=== PATIENT | female | born 1970 | race Caucasian/White ===

== ENCOUNTER → 2017-08-21 12:53 | Outpatient (CLI) | payer OTHER, SELFPAY ==
--- NOTE | 2017-08-21 | DI.RAD.S_ITS ---
PROCEDURE: XR HIP W PEL IF DONE LT 2V INDICATIONS: 47 year-old female with left hip pain, and remote skiing injury. TECHNIQUE: AP pelvis with lateral view(s) of the left hip(s). COMPARISON: None. FINDINGS: Bones: No fractures or dislocations. Pelvic ring appears intact. No joint degeneration. No congenital hip dysplasia. No suspicious bony lesions. Soft tissues: The visualized bowel gas pattern is normal. No suspicious soft tissue calcifications. IMPRESSION: No imaging explanation for left hip pain. Dictated by: Miguel A Hammer M.D. on 08/21/2017 at 14:03 Approved by: Miguel A Hammer M.D. on 08/21/2017 at 14:04
== END ==
PROVIDERS: Family Provider Family Medicine; PCP Family Medicine; Visit Provider Family Medicine
DX: M25.552 Pain in left hip (principal)
CPT/HCPCS: 73502

== ENCOUNTER → 2017-10-15 12:39 | Outpatient (CLI) | payer OTHER, SELFPAY ==
[2017-10-15 13:00] LABS: Add Manual Diff / Slide Review NO; Basophils Percent Auto 0.7 % (0-2); Eosinophils Percent Auto 2.6 % (2-4); Hematocrit 38.7 % (36-46); Hemoglobin 13.1 g/dL (12.0-16.0); Mean Corpuscular HGB Conc 33.9 % (30-36); Mean Corpuscular Hemoglobin 32.5 PG (26-34); Mean Corpuscular Volume 95.8 fL (80-100); Monocytes Percent Auto 7.4 % (3-14); Neutrophils Absolute Auto 3100 /uL (3000-5900); Neutrophils Percent Auto 48.3 % (50-75); Platelet Count 242 X10^3/uL (150-400); Red Blood Cell Count 4.04 X10^6/uL (4.0-5.2); Red Cell Distribution Width 12.5 % (11.6-14.8); White Blood Cell Count 6.3 X10^3/uL (4.5-11.0)
[2017-10-15 13:11] LABS: Alanine Aminotransferase 21 IU/L (9-52); Albumin Globulin Ratio 1.4 (1.0-2.8); Alkaline Phosphatase 64 U/L (38-126); Aspartate Aminotransferase 25 IU/L (14-36); BUN Creatinine Ratio 15.7 (6-22); Bilirubin Total 0.6 mg/dL (0.2-1.3); Blood Urea Nitrogen 11 mg/dL (7-17); Calcium 9.5 mg/dL (8.4-10.2); Carbon Dioxide 26 mmol/L (22-32); Chloride 105 mmol/L (98-107); Estimated Glomerular Filt Rate > 60.0 mL/min (>60); Globulin 2.8 g/dL (1.7-4.1); Glucose 111 mg/dL (70-100); HEMOLYSIS < 15 (0-50); Potassium 3.8 mmol/L (3.4-5.1); Sodium 140 mmol/L (137-145); Total Protein 6.8 g/dL (6.3-8.2)
[2017-10-17 15:48] LABS: Cancer Antigen 27.29 24 U/mL (< 38)
== END ==
PROVIDERS: Family Provider Family Medicine; PCP Family Medicine; Visit Provider Nurse Practitioner Gerontology
DX: C50.912 Malignant neoplasm of unspecified site of left female breast (principal)
CPT/HCPCS: 36415; 80053; 85025; 86300

== ENCOUNTER 2017-11-04 09:45 | Outpatient (RCR) | payer OTHER, SELFPAY ==
--- NOTE | 2017-09-23 10:30 | PT.OIE ---
Current Diagnoses Pain in left hip (09/23/17) Past Surgical History History of third molar tooth extraction Status post appendectomy Status post breast biopsy Status post laparoscopic supracervical hysterectomy (05/17/14) Provider Visit Care Team Role Provider Type Hayley Gillis MD Attending Provider Physician Family Provider Primary Care Provider Specialty: Family Practice Address: [address] [place] [address], [id number] Email: Physical Therapy Initial Evaluation PT-OP-A Visit Information Start: 09/23/17 09:43 Freq: Status: Active Protocol: Document 09/23/17 10:30 MDD (Rec: 09/23/17 12:02 MDD [email or web address]) Out-Patient Physical Therapy Visit Information Visit Information Visit Type Initial Evaluation Visit Start Time 09:48 Visit Stop Time 10:30 Total Visit Minutes 42 Visit Number 1 Number of BEAD WRAPPER Visits 0 Evaluation Information Evaluation Date 09/23/17 PT-OP-B Current Condition Start: 09/23/17 09:43 Freq: Status: Active Protocol: Document 09/23/17 10:30 MDD (Rec: 09/23/17 12:02 MDD [email or web address]) Current Condition History of Current Condition Onset Date fall Current Complaints L hip pain, posterior and deep , occasionally radiates anteriorly History of Current Condition Pain began incidiously, pt reports symptoms B, L > R. Did have medial meniscal tear 3 years ago, nonoperative management with PT. Described as deep stinging, intermittently sharp with stair climbing/WB. Aggravating factors include walking long distances and getting up from sitting prolonged periods. Intermittent spasms noted when laying in bed/sitting. Unable to lay/sleep comfortably on either side. No clicking/popping noted. Prior Treatments and Tests Recent x-ray does not demonstrate degenerative disease per pt report. Pt currently seeing chiropractor - just started treatment, no real change thus far. Foam roll is relieving/performs intermittently. Very infrequently takes ibuprofen if really aggravated. Future Testing and Treatments Planned NA Treatment Goals Patient/Caregiver Goals Pt to tolerate climbing stairs without pain. Pt to tolerate sleeping through the night without left hip pain. 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 Baseline Function- Recreation/Hobbies Gardening, walking. When traveling pt prefers to walk. Trip to [place] last summer walked 10 miles daily x 3 weeks. Would like to take a trip next summer as well. Current Functional Impairments (Reported) Functional Limitations- Mobility/Gait Sitting greater than 30 minutes Ascending/descending stairs Gait greater than 1 mile Personal Factors Other Personal Factors That May Effect Pt with recent diagnosis of Therapy/Recovery breast cancer - currently taking Tamoxifen and in chemically induced menopause. Reports very few negative side effects at this time. PT-OP-C Subjective Start: 09/23/17 09:43 Freq: Status: Active Protocol: Document 09/23/17 10:30 MDD (Rec: 09/23/17 12:02 MDD [email or web address]) OP-PT Subjective Patient Comments Patient Reported Progress Same Patient Questionnaires Lower Extremity Functional Scale LEFS Impairment 20 to 39% Impaired (Score 48- 62) OP-PT Pain Assessment Pain Assessment Grid Paper Pain Assessment Grid Completed Yes Location Lower Back Pain Location Details lumbar spine Intensity 2 Scale Used Numeric (1 - 10) Description Aching Frequency Intermittent L hip Pain Location Details posterior left hip Intensity 4 Scale Used Numeric (1 - 10) Description Aching Cramping Sharp Spasm Frequency Frequent Pain Duration 1 year Radiating Location anterior hip Pain Aggravating Factors Position Changing Position Standing Sitting Walking Stair Climbing Pain Alleviating Factors Massage Other Pain Alleviating Factors foam roll to tender areas PT-OP-F Manual Assessment Start: 09/23/17 09:43 Freq: Status: Active Protocol: Document 09/23/17 10:30 MDD (Rec: 09/23/17 12:02 MDD [email or web address]) Manual Assessments Other Manual Assessments Other Manual Assessments L iliac crest/PSIS/ASIS appear elevated in standing, increased lumbar lordosis noted. PT-OP-G Mobility & Gait Start: 09/23/17 09:43 Freq: Status: Active Protocol: Document 09/23/17 10:30 MDD (Rec: 09/23/17 12:02 MDD [email or web address]) OP Mobility Evaluation Bed Mobility Rolling Independent Supine to and from Sit Independent Transfers Sit to Stand Independent Bed to Chair Transfers Independent Functional Movements Squats Independent, single leg squats aggravate L hip pain on L, demonstrates functional hip weakness with patella drifting medial OP Gait Assessment Gait Gait Assistance Required: Independent Distance (Feet) (feet) 20 Able to Maintain Weight Bearing Status Yes During Gait Gait Deviations General Gait Pattern Antalgic PT-OP-J Posture/Palpation/Skin Start: 09/23/17 09:43 Freq: Status: Active Protocol: Document 09/23/17 10:30 MDD (Rec: 09/23/17 12:02 MDD [email or web address]) Posture Evaluation Comments Posture Comments L iliac crest/PSIS/ ASIS elevated in standing. Increase lumbar lordosis. Palpation Assessment Location One Palpation Location B piriformis Palpation Findings Soft Tissue Tightness Palpation Details L piriformis ttp with palpable tightness noted PT-OP-K Range of Motion Start: 09/23/17 09:43 Freq: Status: Active Protocol: Document 09/23/17 10:30 MDD (Rec: 09/23/17 12:02 MDD [email or web address]) Lumbar Spine Range of Motion Lumbar Spine Active Testing Position Standing Comments Lumbar ROM wfl with no increase in hip pain. Mild disfomfort in low back noted with extension. Hip Goniometric Range of Motion Hip ROM Limitations Hip ROM Limitations Pain Comments L hip flexion > 100 degrees mildly painful. Extension and abduction wnl. PT-OP-L Special Tests Start: 09/23/17 09:43 Freq: Status: Active Protocol: Document 09/23/17 10:30 MDD (Rec: 09/23/17 12:02 [facility] [email or web address]) Special Tests Lumbar Spine Special Tests Straight Leg Raise Test Results - Comments HS tightness L >R Stork Test Test Results + instability and pain L LE Hip Special Tests Courtney's Test Test Results quad shortness R>L straight leg Test Results - B Comments hamstring shortness L > R Scour Test Test Results + increased pain L hip OLAYINKA Test Results + increased pain L groin and posterior hip PT-OP-M Strength Start: 09/23/17 09:43 Freq: Status: Active Protocol: Document 09/23/17 10:30 MDD (Rec: 09/23/17 12:02 MDD [email or web address]) Hip Strength Hip Manual Muscle Testing Right Flexion (L2) 4+ Good+ Extension (S1) 4+ Good+ Abduction 5 Normal External Rotation 5 Normal Internal Rotation 5 Normal Left Flexion (L2) 4- Good- Extension (S1) 4+ Good+ Abduction 3+ Fair+ External Rotation 4- Good- Internal Rotation 4 Good Comments Resisted flexion and IR painful Knee Strength Knee Manual Muscle Testing Right Flexion (S2) 5 Normal Extension (L3) 5 Normal Left Flexion (S2) 5 Normal Extension (L3) 5 Normal PT-OP-Q Treatments Start: 09/23/17 09:43 Freq: Status: Active Protocol: Document 09/23/17 10:30 MDD (Rec: 09/23/17 12:02 MDD [email or web address]) Therapeutic Exercises Supine Exercises Straight leg raise Side bilateral Reps/Minutes 8 Comments stabilizing with TrA and posterior pelvic tilt Posterior pelvic tilts Side bilateral Reps/Minutes 15 with 5 s holds Comments focus on pelvic isolation/ avoiding using RA Sidelying Exercises Clamshells Side bilateral Reps/Minutes 15-20 Comments Focus on proper form ( increased hip/knee flexion) PT-OP-T Assessment and Plan Start: 09/23/17 09:43 Freq: Status: Active Protocol: Document 09/23/17 10:30 MDD (Rec: 09/23/17 12:02 MDD [email or web address]) Physical Therapy Assessment Rehab Potential Rehabilitation Potential Excellent Evaluation Complexity Number of Personal Factors/Comorbidities 1-2 Number of Body Systems Impaired 1-2 Clinical Presentation at Evaluation Stable Impairments Impairments Activity Tolerance Functional Activities Gait Pain Posture ROM Soft Tissue Mobility Strength Goals Four Impairment Activity tolerance Half-Way Goal (LTG) Pt to tolerate ambulating up to 6 miles with no greater than 2/10 L hip pain LTG Duration 8-12 Three Impairment strength Short Term Goal (STG) Pt to demonstrate single leg squat with proper form and no pain on left. STG Duration 5-6 weeks 2 Impairment functional activities Short Term Goal (STG) Pt to ascend 3 flights of stairs with pain no greater than 2/10. STG Duration 2-3 weeks 1 Impairment Pain Short Term Goal (STG) Pt to report decreased pain to no greater than 2/10 after a full day of work. STG Duration 2 weeks Assessment Summary Assessment Pt demonstrates impaired posture, impaired L hip/core strength and stability and pain. Physical Therapy Plan Frequency and Duration Frequency of Treatment 1x/Week Duration of Treatment 8-12 weeks Plan of Care Start Date 09/23/17 Plan of Care End Date 12/24/17 Next Visit Focus/Plan Next Note Type Treatment Note Next Visit Plan Evaluate stair climbing, TrA strength. Review HEP and perform gait analysis.
--- NOTE | 2017-09-23 12:05 | PT.OPPOC ---
Current Diagnoses Pain in left hip (09/23/17) Provider Visit Care Team Role Provider Type Hayley Gillis MD Attending Provider Physician Family Provider Primary Care Provider Specialty: Family Practice Address: [address] [place] [address], [id number] Email: Plan Of Care PT-OP-T Assessment and Plan Start: 09/23/17 09:43 Freq: Status: Active Protocol: Document 09/23/17 10:30 MDD (Rec: 09/23/17 12:02 MDD [email or web address]) Physical Therapy Assessment Rehab Potential Rehabilitation Potential Excellent Evaluation Complexity Number of Personal Factors/Comorbidities 1-2 Number of Body Systems Impaired 1-2 Clinical Presentation at Evaluation Stable Impairments Impairments Activity Tolerance Functional Activities Gait Pain Posture ROM Soft Tissue Mobility Strength Goals Four Impairment Activity tolerance Technical Project Coordinator Goal (LTG) Pt to tolerate ambulating up to 6 miles with no greater than 2/10 L hip pain LTG Duration 8-12 Three Impairment strength Short Term Goal (STG) Pt to demonstrate single leg squat with proper form and no pain on left. STG Duration 5-6 weeks 2 Impairment functional activities Short Term Goal (STG) Pt to ascend 3 flights of stairs with pain no greater than 2/10. STG Duration 2-3 weeks 1 Impairment Pain Short Term Goal (STG) Pt to report decreased pain to no greater than 2/10 after a full day of work. STG Duration 2 weeks Assessment Summary Assessment Pt demonstrates impaired posture, impaired L hip/core strength and stability and pain. Physical Therapy Plan Frequency and Duration Frequency of Treatment 1x/Week Duration of Treatment 8-12 weeks Plan of Care Start Date 09/23/17 Plan of Care End Date 12/24/17 Next Visit Focus/Plan Next Note Type Treatment Note Next Visit Plan Evaluate stair climbing, TrA strength. Review HEP and perform gait analysis. Plan of Care Dates Plan of Care Start Date 09/23/17 Plan of Care End Date 12/24/17 Please Sign and Return: I have reviewed this Plan of Care and certify that the skilled therapy services above are required to meet the patient?s needs. Physician Signature Date Printed Name and Credentials Clinical Instructor Signature Printed Name and Credentials
--- NOTE | 2017-09-30 13:40 | PT.OPPN ---
Current Diagnoses Pain in left hip (09/30/17) Physical Therapy Progress Note PT-OP-A Visit Information Start: 09/23/17 09:43 Freq: Status: Active Protocol: Document 09/23/17 10:30 MDD (Rec: 09/23/17 12:02 MDD [email or web address]) Out-Patient Physical Therapy Visit Information Visit Information Visit Type Initial Evaluation Visit Start Time 09:48 Visit Stop Time 10:30 Total Visit Minutes 42 Visit Number 1 Number of AGRICULTURAL PILOT Visits 0 Evaluation Information Evaluation Date 09/23/17 PT-OP-B Current Condition Start: 09/23/17 09:43 Freq: Status: Active Protocol: Document 09/23/17 10:30 MDD (Rec: 09/23/17 12:02 MDD [email or web address]) Current Condition History of Current Condition Onset Date fall Current Complaints L hip pain, posterior and deep , occasionally radiates anteriorly History of Current Condition Pain began incidiously, pt reports symptoms B, L > R. Did have medial meniscal tear 3 years ago, nonoperative management with PT. Described as deep stinging, intermittently sharp with stair climbing/WB. Aggravating factors include walking long distances and getting up from sitting prolonged periods. Intermittent spasms noted when laying in bed/sitting. Unable to lay/sleep comfortably on either side. No clicking/popping noted. Prior Treatments and Tests Recent x-ray does not demonstrate degenerative disease per pt report. Pt currently seeing chiropractor - just started treatment, no real change thus far. Foam roll is relieving/performs intermittently. Very infrequently takes ibuprofen if really aggravated. Future Testing and Treatments Planned NA Treatment Goals Patient/Caregiver Goals Pt to tolerate climbing stairs without pain. Pt to tolerate sleeping through the night without left hip pain. 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 Baseline Function- Recreation/Hobbies Gardening, walking. When traveling pt prefers to walk. Trip to [place] last summer walked 10 miles daily x 3 weeks. Would like to take a trip next summer as well. Current Functional Impairments (Reported) Functional Limitations- Mobility/Gait Sitting greater than 30 minutes Ascending/descending stairs Gait greater than 1 mile Personal Factors Other Personal Factors That May Effect Pt with recent diagnosis of Therapy/Recovery breast cancer - currently taking Tamoxifen and in chemically induced menopause. Reports very few negative side effects at this time. PT-OP-C Subjective Start: 09/23/17 09:43 Freq: Status: Active Protocol: Document 09/30/17 09:45 MDD (Rec: 09/30/17 09:47 MDD [email or web address]) OP-PT Subjective Patient Comments Patient Comments Pt reports she has been doing her exercises regularly. No significant change in pain thus far. [place] and had increased pain after walking for half the day . Notes pain in both hips today. Patient Reported Progress Same OP-PT Pain Assessment Pain Assessment Grid Paper Pain Assessment Grid Completed Yes Location L hip Intensity 3 Scale Used Numeric (1 - 10) Description Aching Cramping Frequency Constant PT-OP-F Manual Assessment Start: 09/23/17 09:43 Freq: Status: Active Protocol: Document 09/23/17 10:30 MDD (Rec: 09/23/17 12:02 MDD [email or web address]) Manual Assessments Other Manual Assessments Other Manual Assessments L iliac crest/PSIS/ASIS appear elevated in standing, increased lumbar lordosis noted. PT-OP-G Mobility & Gait Start: 09/23/17 09:43 Freq: Status: Active Protocol: Document 09/23/17 10:30 MDD (Rec: 09/23/17 12:02 MDD [email or web address]) OP Mobility Evaluation Bed Mobility Rolling Independent Supine to and from Sit Independent Transfers Sit to Stand Independent Bed to Chair Transfers Independent Functional Movements Squats Independent, single leg squats aggravate L hip pain on L, demonstrates functional hip weakness with patella drifting medial OP Gait Assessment Gait Gait Assistance Required: Independent Distance (Feet) (feet) 20 Able to Maintain Weight Bearing Status Yes During Gait Gait Deviations General Gait Pattern Antalgic PT-OP-J Posture/Palpation/Skin Start: 09/23/17 09:43 Freq: Status: Active Protocol: Document 09/23/17 10:30 MDD (Rec: 09/23/17 12:02 MDD [email or web address]) Posture Evaluation Comments Posture Comments L iliac crest/PSIS/ ASIS elevated in standing. Increase lumbar lordosis. Palpation Assessment Location One Palpation Location B piriformis Palpation Findings Soft Tissue Tightness Palpation Details L piriformis ttp with palpable tightness noted PT-OP-K Range of Motion Start: 09/23/17 09:43 Freq: Status: Active Protocol: Document 09/23/17 10:30 MDD (Rec: 09/23/17 12:02 MDD [email or web address]) Lumbar Spine Range of Motion Lumbar Spine Active Testing Position Standing Comments Lumbar ROM wfl with no increase in hip pain. Mild disfomfort in low back noted with extension. Hip Goniometric Range of Motion Hip ROM Limitations Hip ROM Limitations Pain Comments L hip flexion > 100 degrees mildly painful. Extension and abduction wnl. PT-OP-L Special Tests Start: 09/23/17 09:43 Freq: Status: Active Protocol: Document 09/23/17 10:30 MDD (Rec: 09/23/17 12:02 MDD [email or web address]) Special Tests Lumbar Spine Special Tests Straight Leg Raise Test Results - Comments HS tightness L >R Stork Test Test Results + instability and pain L LE Hip Special Tests Courtney's Test Test Results quad shortness R>L straight leg Test Results - B Comments hamstring shortness L > R Scour Test Test Results + increased pain L hip OLAYINKA Test Results + increased pain L groin and posterior hip PT-OP-M Strength Start: 09/23/17 09:43 Freq: Status: Active Protocol: Document 09/23/17 10:30 MDD (Rec: 09/23/17 12:02 MDD [email or web address]) Hip Strength Hip Manual Muscle Testing Right Flexion (L2) 4+ Good+ Extension (S1) 4+ Good+ Abduction 5 Normal External Rotation 5 Normal Internal Rotation 5 Normal Left Flexion (L2) 4- Good- Extension (S1) 4+ Good+ Abduction 3+ Fair+ External Rotation 4- Good- Internal Rotation 4 Good Comments Resisted flexion and IR painful Knee Strength Knee Manual Muscle Testing Right Flexion (S2) 5 Normal Extension (L3) 5 Normal Left Flexion (S2) 5 Normal Extension (L3) 5 Normal PT-OP-T Assessment and Plan Start: 09/23/17 09:43 Freq: Status: Active Protocol: Document 09/30/17 13:37 MDD (Rec: 09/30/17 13:39 MDD [email or web address]) Physical Therapy Assessment Rehab Potential Rehabilitation Potential Good Evaluation Complexity Number of Personal Factors/Comorbidities 1-2 Number of Body Systems Impaired 1-2 Clinical Presentation at Evaluation Stable Impairments Impairments Activity Tolerance Functional Activities Gait Pain Posture ROM Soft Tissue Mobility Strength Goals Four Impairment Activity tolerance Education Assistant Goal (LTG) Pt to tolerate ambulating up to 6 miles with no greater than 2/10 L hip pain LTG Duration 8-12 Three Impairment strength Short Term Goal (STG) Pt to demonstrate single leg squat with proper form and no pain on left. STG Duration 5-6 weeks 2 Impairment functional activities Short Term Goal (STG) Pt to ascend 3 flights of stairs with pain no greater than 2/10. STG Duration 2-3 weeks 1 Impairment Pain Short Term Goal (STG) Pt to report decreased pain to no greater than 2/10 after a full day of work. STG Duration 2 weeks Assessment Summary Assessment Pt reports less pain climbing stairs with TrA contraction. Notes slight improvement in pain following manual therapy today. Physical Therapy Plan Frequency and Duration Frequency of Treatment 1x/Week Duration of Treatment 8-12 weeks Plan of Care Start Date 09/23/17 Plan of Care End Date 12/24/17 Next Visit Focus/Plan Next Note Type Treatment Note Next Visit Plan Evaluate stair climbing, TrA strength. Review HEP and continue stair training,
--- NOTE | 2017-10-08 09:48 | PT.OTN ---
Current Diagnoses Pain in left hip (10/08/17) Physical Therapy Treatment Note PT-OP-A Visit Information Start: 09/23/17 09:43 Freq: Status: Active Protocol: Document 10/08/17 09:48 MDD (Rec: 10/08/17 12:28 MDD [id number]) Out-Patient Physical Therapy Visit Information Visit Information Visit Type Treatment Note Visit Start Time 09:03 Visit Stop Time 09:48 Total Visit Minutes 45 Visit Number 3 Evaluation Information Evaluation Date 09/23/17 PT-OP-B Current Condition Start: 09/23/17 09:43 Freq: Status: Active Protocol: Document 09/23/17 10:30 MDD (Rec: 09/23/17 12:02 MDD [email or web address]) Current Condition History of Current Condition Onset Date fall Current Complaints L hip pain, posterior and deep , occasionally radiates anteriorly History of Current Condition Pain began incidiously, pt reports symptoms B, L > R. Did have medial meniscal tear 3 years ago, nonoperative management with PT. Described as deep stinging, intermittently sharp with stair climbing/WB. Aggravating factors include walking long distances and getting up from sitting prolonged periods. Intermittent spasms noted when laying in bed/sitting. Unable to lay/sleep comfortably on either side. No clicking/popping noted. Prior Treatments and Tests Recent x-ray does not demonstrate degenerative disease per pt report. Pt currently seeing chiropractor - just started treatment, no real change thus far. Foam roll is relieving/performs intermittently. Very infrequently takes ibuprofen if really aggravated. Future Testing and Treatments Planned NA Treatment Goals Patient/Caregiver Goals Pt to tolerate climbing stairs without pain. Pt to tolerate sleeping through the night without left hip pain. 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 Baseline Function- Recreation/Hobbies Gardening, walking. When traveling pt prefers to walk. Trip to [place] last summer walked 10 miles daily x 3 weeks. Would like to take a trip next summer as well. Current Functional Impairments (Reported) Functional Limitations- Mobility/Gait Sitting greater than 30 minutes Ascending/descending stairs Gait greater than 1 mile Personal Factors Other Personal Factors That May Effect Pt with recent diagnosis of Therapy/Recovery breast cancer - currently taking Tamoxifen and in chemically induced menopause. Reports very few negative side effects at this time. PT-OP-C Subjective Start: 09/23/17 09:43 Freq: Status: Active Protocol: Document 10/08/17 10:31 MDD (Rec: 10/08/17 12:28 MDD [id number]) OP-PT Subjective Patient Comments Patient Comments Pt reports she has been feeling less sore overall. Reports 3/10 at worst in L posterior hip. Has been doing less walking overall, just sticking to working on her exercises Patient Reported Progress Improving OP-PT Pain Assessment Location L hip Pain Location Details posterior left hip Intensity 2 Scale Used Numeric (1 - 10) Description Aching Cramping PT-OP-F Manual Assessment Start: 09/23/17 09:43 Freq: Status: Active Protocol: Document 09/23/17 10:30 MDD (Rec: 09/23/17 12:02 MDD [email or web address]) Manual Assessments Other Manual Assessments Other Manual Assessments L iliac crest/PSIS/ASIS appear elevated in standing, increased lumbar lordosis noted. PT-OP-G Mobility & Gait Start: 09/23/17 09:43 Freq: Status: Active Protocol: Document 09/23/17 10:30 MDD (Rec: 09/23/17 12:02 MDD [email or web address]) OP Mobility Evaluation Bed Mobility Rolling Independent Supine to and from Sit Independent Transfers Sit to Stand Independent Bed to Chair Transfers Independent Functional Movements Squats Independent, single leg squats aggravate L hip pain on L, demonstrates functional hip weakness with patella drifting medial OP Gait Assessment Gait Gait Assistance Required: Independent Distance (Feet) (feet) 20 Able to Maintain Weight Bearing Status Yes During Gait Gait Deviations General Gait Pattern Antalgic PT-OP-J Posture/Palpation/Skin Start: 09/23/17 09:43 Freq: Status: Active Protocol: Document 09/23/17 10:30 MDD (Rec: 09/23/17 12:02 MDD [email or web address]) Posture Evaluation Comments Posture Comments L iliac crest/PSIS/ ASIS elevated in standing. Increase lumbar lordosis. Palpation Assessment Location One Palpation Location B piriformis Palpation Findings Soft Tissue Tightness Palpation Details L piriformis ttp with palpable tightness noted PT-OP-K Range of Motion Start: 09/23/17 09:43 Freq: Status: Active Protocol: Document 09/23/17 10:30 MDD (Rec: 09/23/17 12:02 MDD [email or web address]) Lumbar Spine Range of Motion Lumbar Spine Active Testing Position Standing Comments Lumbar ROM wfl with no increase in hip pain. Mild disfomfort in low back noted with extension. Hip Goniometric Range of Motion Hip ROM Limitations Hip ROM Limitations Pain Comments L hip flexion > 100 degrees mildly painful. Extension and abduction wnl. PT-OP-L Special Tests Start: 09/23/17 09:43 Freq: Status: Active Protocol: Document 09/23/17 10:30 MDD (Rec: 09/23/17 12:02 MDD [email or web address]) Special Tests Lumbar Spine Special Tests Straight Leg Raise Test Results - Comments HS tightness L >R Stork Test Test Results + instability and pain L LE Hip Special Tests Courtney's Test Test Results quad shortness R>L straight leg Test Results - B Comments hamstring shortness L > R Scour Test Test Results + increased pain L hip OLAYINKA Test Results + increased pain L groin and posterior hip PT-OP-M Strength Start: 09/23/17 09:43 Freq: Status: Active Protocol: Document 09/23/17 10:30 MDD (Rec: 09/23/17 12:02 MDD [email or web address]) Hip Strength Hip Manual Muscle Testing Right Flexion (L2) 4+ Good+ Extension (S1) 4+ Good+ Abduction 5 Normal External Rotation 5 Normal Internal Rotation 5 Normal Left Flexion (L2) 4- Good- Extension (S1) 4+ Good+ Abduction 3+ Fair+ External Rotation 4- Good- Internal Rotation 4 Good Comments Resisted flexion and IR painful Knee Strength Knee Manual Muscle Testing Right Flexion (S2) 5 Normal Extension (L3) 5 Normal Left Flexion (S2) 5 Normal Extension (L3) 5 Normal PT-OP-Q Treatments Start: 09/23/17 09:43 Freq: Status: Active Protocol: Document 10/08/17 10:31 MDD (Rec: 10/08/17 12:28 [facility] [id number]) Therapeutic Exercises Supine Exercises Piriformis stretch. Side bilateral Reps/Minutes 2 x 30 seconds each Straight leg raise Side bilateral Reps/Minutes 12 Comments focus on adding posterior pelvic tilt and stabilizing core Posterior pelvic tilts Supine Exercise Name TrA activation in supine with bent knee fallouts Reps/Minutes 10 x 5 second holds Comments Education on TrA activation, palpation with both therapist and patient Sidelying Exercises ITB stretch Side bilateral Reps/Minutes 2 x 30s Clamshells Side bilateral Resistance Level 1 t-band Reps/Minutes 15 Manual Therapy Treatment Soft Tissue Mobilization piriformis Body Location L piriformis Mobilization Type Myofascial Release Trigger Point Release Intensity/Depth Moderate Body Position Supine Comments also performed functional stretching in prone with hip stretching in IR PT-OP-T Assessment and Plan Start: 09/23/17 09:43 Freq: Status: Active Protocol: Document 10/08/17 10:31 MDD (Rec: 10/08/17 12:28 MDD [id number]) Physical Therapy Assessment Rehab Potential Rehabilitation Potential Excellent Progress Towards Goals Progress Towards Goals Progressing Toward Goals Progress Comments Pt reporting less pain overall . Has not been woken up at night by symptoms. Physical Therapy Plan Next Visit Focus/Plan Next Note Type Treatment Note Next Visit Plan continue progression of TrA strength. Focus on functional strength tests ie eccentric steps, single leg squats etc.
--- NOTE | 2017-10-15 14:03 | PT.OTN ---
Current Diagnoses Pain in left hip (10/15/17) Physical Therapy Treatment Note PT-OP-A Visit Information Start: 09/23/17 09:43 Freq: Status: Active Protocol: Document 10/15/17 13:00 SAK (Rec: 10/15/17 14:03 SAK [id number]) Out-Patient Physical Therapy Visit Information Visit Information Visit Type Treatment Note Visit Start Time 13:00 Visit Stop Time 13:45 Total Visit Minutes 45 Visit Number 4 PT-OP-B Current Condition Start: 09/23/17 09:43 Freq: Status: Active Protocol: Document 09/23/17 10:30 MDD (Rec: 09/23/17 12:02 MDD [email or web address]) Current Condition History of Current Condition Onset Date fall Current Complaints L hip pain, posterior and deep , occasionally radiates anteriorly History of Current Condition Pain began incidiously, pt reports symptoms B, L > R. Did have medial meniscal tear 3 years ago, nonoperative management with PT. Described as deep stinging, intermittently sharp with stair climbing/WB. Aggravating factors include walking long distances and getting up from sitting prolonged periods. Intermittent spasms noted when laying in bed/sitting. Unable to lay/sleep comfortably on either side. No clicking/popping noted. Prior Treatments and Tests Recent x-ray does not demonstrate degenerative disease per pt report. Pt currently seeing chiropractor - just started treatment, no real change thus far. Foam roll is relieving/performs intermittently. Very infrequently takes ibuprofen if really aggravated. Future Testing and Treatments Planned NA Treatment Goals Patient/Caregiver Goals Pt to tolerate climbing stairs without pain. Pt to tolerate sleeping through the night without left hip pain. 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 Baseline Function- Recreation/Hobbies Gardening, walking. When traveling pt prefers to walk. Trip to [place] last summer walked 10 miles daily x 3 weeks. Would like to take a trip next summer as well. Current Functional Impairments (Reported) Functional Limitations- Mobility/Gait Sitting greater than 30 minutes Ascending/descending stairs Gait greater than 1 mile Personal Factors Other Personal Factors That May Effect Pt with recent diagnosis of Therapy/Recovery breast cancer - currently taking Tamoxifen and in chemically induced menopause. Reports very few negative side effects at this time. PT-OP-C Subjective Start: 09/23/17 09:43 Freq: Status: Active Protocol: Document 10/15/17 13:00 SAK (Rec: 10/15/17 14:03 SAK [id number]) OP-PT Subjective Patient Comments Patient Comments Pain 2-3/10. Compliant to HEP which feels helpful. Would like help evaluating her squat form which she does sometimes at home. Patient Reported Progress Improving PT-OP-F Manual Assessment Start: 09/23/17 09:43 Freq: Status: Active Protocol: Document 09/23/17 10:30 MDD (Rec: 09/23/17 12:02 MDD [email or web address]) Manual Assessments Other Manual Assessments Other Manual Assessments L iliac crest/PSIS/ASIS appear elevated in standing, increased lumbar lordosis noted. PT-OP-G Mobility & Gait Start: 09/23/17 09:43 Freq: Status: Active Protocol: Document 09/23/17 10:30 MDD (Rec: 09/23/17 12:02 MDD [email or web address]) OP Mobility Evaluation Bed Mobility Rolling Independent Supine to and from Sit Independent Transfers Sit to Stand Independent Bed to Chair Transfers Independent Functional Movements Squats Independent, single leg squats aggravate L hip pain on L, demonstrates functional hip weakness with patella drifting medial OP Gait Assessment Gait Gait Assistance Required: Independent Distance (Feet) (feet) 20 Able to Maintain Weight Bearing Status Yes During Gait Gait Deviations General Gait Pattern Antalgic PT-OP-J Posture/Palpation/Skin Start: 09/23/17 09:43 Freq: Status: Active Protocol: Document 09/23/17 10:30 MDD (Rec: 09/23/17 12:02 MDD [email or web address]) Posture Evaluation Comments Posture Comments L iliac crest/PSIS/ ASIS elevated in standing. Increase lumbar lordosis. Palpation Assessment Location One Palpation Location B piriformis Palpation Findings Soft Tissue Tightness Palpation Details L piriformis ttp with palpable tightness noted PT-OP-K Range of Motion Start: 09/23/17 09:43 Freq: Status: Active Protocol: Document 09/23/17 10:30 MDD (Rec: 09/23/17 12:02 MDD [email or web address]) Lumbar Spine Range of Motion Lumbar Spine Active Testing Position Standing Comments Lumbar ROM wfl with no increase in hip pain. Mild disfomfort in low back noted with extension. Hip Goniometric Range of Motion Hip ROM Limitations Hip ROM Limitations Pain Comments L hip flexion > 100 degrees mildly painful. Extension and abduction wnl. PT-OP-L Special Tests Start: 09/23/17 09:43 Freq: Status: Active Protocol: Document 09/23/17 10:30 MDD (Rec: 09/23/17 12:02 MDD [email or web address]) Special Tests Lumbar Spine Special Tests Straight Leg Raise Test Results - Comments HS tightness L >R Stork Test Test Results + instability and pain L LE Hip Special Tests Courtney's Test Test Results quad shortness R>L straight leg Test Results - B Comments hamstring shortness L > R Scour Test Test Results + increased pain L hip OLAYINKA Test Results + increased pain L groin and posterior hip PT-OP-M Strength Start: 09/23/17 09:43 Freq: Status: Active Protocol: Document 09/23/17 10:30 MDD (Rec: 09/23/17 12:02 MDD [email or web address]) Hip Strength Hip Manual Muscle Testing Right Flexion (L2) 4+ Good+ Extension (S1) 4+ Good+ Abduction 5 Normal External Rotation 5 Normal Internal Rotation 5 Normal Left Flexion (L2) 4- Good- Extension (S1) 4+ Good+ Abduction 3+ Fair+ External Rotation 4- Good- Internal Rotation 4 Good Comments Resisted flexion and IR painful Knee Strength Knee Manual Muscle Testing Right Flexion (S2) 5 Normal Extension (L3) 5 Normal Left Flexion (S2) 5 Normal Extension (L3) 5 Normal PT-OP-Q Treatments Start: 09/23/17 09:43 Freq: Status: Active Protocol: Document 10/15/17 13:00 [facility] (Rec: 10/15/17 14:03 [facility] [id number]) Cardio Equipment Recumbent Stepper (Sci-Fit) Duration (Minutes) 5 Resistance 2 Other emphasis on neutral LE alignment Gym Equipment Shuttle Balance Standing bal Details EO front/back, side/side Therapeutic Exercises Supine Exercises Automatic core engagement: TrA and multifidi Side bilateral Resistance isometric Reps/Minutes 3 ea Comments 90/90 position Piriformis stretch. Side bilateral Reps/Minutes 2 x 30 seconds each Comments supine and sitting Straight leg raise Side bilateral Reps/Minutes 12 Comments focus on adding posterior pelvic tilt and stabilizing core Posterior pelvic tilts Supine Exercise Name TrA activation in supine with bent knee fallouts Reps/Minutes 10 x 5 second holds Comments Education on TrA activation, palpation with both therapist and patient Sidelying Exercises Clamshells Side bilateral Resistance Level 1 t-band Reps/Minutes 15 Comments verbal and manual cues Standing Exercises squats Side bilateral Reps/Minutes 10 Comments use of yardstick and mirror for visual feedback PT-OP-T Assessment and Plan Start: 09/23/17 09:43 Freq: Status: Active Protocol: Document 10/15/17 13:00 [facility] (Rec: 10/15/17 14:03 [facility] [id number]) Physical Therapy Assessment Goals Four Impairment Activity tolerance Advertising Writer Goal (LTG) Pt to tolerate ambulating up to 6 miles with no greater than 2/10 L hip pain LTG Duration 8-12 Three Impairment strength Short Term Goal (STG) Pt to demonstrate single leg squat with proper form and no pain on left. STG Duration 5-6 weeks 2 Impairment functional activities Short Term Goal (STG) Pt to ascend 3 flights of stairs with pain no greater than 2/10. STG Duration 2-3 weeks 1 Impairment Pain Short Term Goal (STG) Pt to report decreased pain to no greater than 2/10 after a full day of work. STG Duration 2 weeks Progress Towards Goals Progress Towards Goals Progressing Toward Goals Assessment Summary Assessment Patient needed verbal, manual, and visual cues for neutral alignment with ther ex. Good progress. Physical Therapy Plan Next Visit Focus/Plan Next Note Type Treatment Note Next Visit Plan continue progression of TrA strength. Focus on functional strength tests ie eccentric steps, single leg squats etc.
--- NOTE | 2017-10-18 09:47 | PT.OTN ---
Current Diagnoses Pain in left hip (10/18/17) Physical Therapy Treatment Note PT-OP-A Visit Information Start: 09/23/17 09:43 Freq: Status: Active Protocol: Document 10/18/17 10:14 MDD (Rec: 10/18/17 10:31 MDD [id number]) Out-Patient Physical Therapy Visit Information Visit Information Visit Type Treatment Note Visit Note Eccentric step test demonstrates decreased L hip strength with medial knee drift Visit Start Time 09:02 Visit Stop Time 09:47 Total Visit Minutes 45 Visit Number 5 Number of CHAIR Visits 0 Evaluation Information Evaluation Date 09/23/17 PT-OP-B Current Condition Start: 09/23/17 09:43 Freq: Status: Active Protocol: Document 09/23/17 10:30 MDD (Rec: 09/23/17 12:02 MDD [email or web address]) Current Condition History of Current Condition Onset Date fall Current Complaints L hip pain, posterior and deep , occasionally radiates anteriorly History of Current Condition Pain began incidiously, pt reports symptoms B, L > R. Did have medial meniscal tear 3 years ago, nonoperative management with PT. Described as deep stinging, intermittently sharp with stair climbing/WB. Aggravating factors include walking long distances and getting up from sitting prolonged periods. Intermittent spasms noted when laying in bed/sitting. Unable to lay/sleep comfortably on either side. No clicking/popping noted. Prior Treatments and Tests Recent x-ray does not demonstrate degenerative disease per pt report. Pt currently seeing chiropractor - just started treatment, no real change thus far. Foam roll is relieving/performs intermittently. Very infrequently takes ibuprofen if really aggravated. Future Testing and Treatments Planned NA Treatment Goals Patient/Caregiver Goals Pt to tolerate climbing stairs without pain. Pt to tolerate sleeping through the night without left hip pain. 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 Baseline Function- Recreation/Hobbies Gardening, walking. When traveling pt prefers to walk. Trip to [place] last summer walked 10 miles daily x 3 weeks. Would like to take a trip next summer as well. Current Functional Impairments (Reported) Functional Limitations- Mobility/Gait Sitting greater than 30 minutes Ascending/descending stairs Gait greater than 1 mile Personal Factors Other Personal Factors That May Effect Pt with recent diagnosis of Therapy/Recovery breast cancer - currently taking Tamoxifen and in chemically induced menopause. Reports very few negative side effects at this time. PT-OP-C Subjective Start: 09/23/17 09:43 Freq: Status: Active Protocol: Document 10/18/17 10:14 MDD (Rec: 10/18/17 10:31 MDD [id number]) OP-PT Subjective Patient Comments Patient Comments HEP helps relieve pain when aggravated. Reports feeling she is using her muscles differently. Pain has decreased significantly. No pain today. Patient Reported Progress Improving PT-OP-F Manual Assessment Start: 09/23/17 09:43 Freq: Status: Active Protocol: Document 09/23/17 10:30 MDD (Rec: 09/23/17 12:02 MDD [email or web address]) Manual Assessments Other Manual Assessments Other Manual Assessments L iliac crest/PSIS/ASIS appear elevated in standing, increased lumbar lordosis noted. PT-OP-G Mobility & Gait Start: 09/23/17 09:43 Freq: Status: Active Protocol: Document 09/23/17 10:30 MDD (Rec: 09/23/17 12:02 MDD [email or web address]) OP Mobility Evaluation Bed Mobility Rolling Independent Supine to and from Sit Independent Transfers Sit to Stand Independent Bed to Chair Transfers Independent Functional Movements Squats Independent, single leg squats aggravate L hip pain on L, demonstrates functional hip weakness with patella drifting medial OP Gait Assessment Gait Gait Assistance Required: Independent Distance (Feet) (feet) 20 Able to Maintain Weight Bearing Status Yes During Gait Gait Deviations General Gait Pattern Antalgic PT-OP-J Posture/Palpation/Skin Start: 09/23/17 09:43 Freq: Status: Active Protocol: Document 09/23/17 10:30 MDD (Rec: 09/23/17 12:02 MDD [email or web address]) Posture Evaluation Comments Posture Comments L iliac crest/PSIS/ ASIS elevated in standing. Increase lumbar lordosis. Palpation Assessment Location One Palpation Location B piriformis Palpation Findings Soft Tissue Tightness Palpation Details L piriformis ttp with palpable tightness noted PT-OP-K Range of Motion Start: 09/23/17 09:43 Freq: Status: Active Protocol: Document 09/23/17 10:30 MDD (Rec: 07/16/18 12:02 MDD [email or web address]) Lumbar Spine Range of Motion Lumbar Spine Active Testing Position Standing Comments Lumbar ROM wfl with no increase in hip pain. Mild disfomfort in low back noted with extension. Hip Goniometric Range of Motion Hip ROM Limitations Hip ROM Limitations Pain Comments L hip flexion > 100 degrees mildly painful. Extension and abduction wnl. PT-OP-L Special Tests Start: 09/23/17 09:43 Freq: Status: Active Protocol: Document 09/23/17 10:30 MDD (Rec: 09/23/17 12:02 MDD [email or web address]) Special Tests Lumbar Spine Special Tests Straight Leg Raise Test Results - Comments HS tightness L >R Stork Test Test Results + instability and pain L LE Hip Special Tests Courtney's Test Test Results quad shortness R>L straight leg Test Results - B Comments hamstring shortness L > R Scour Test Test Results + increased pain L hip OLAYINKA Test Results + increased pain L groin and posterior hip PT-OP-M Strength Start: 09/23/17 09:43 Freq: Status: Active Protocol: Document 09/23/17 10:30 MDD (Rec: 09/23/17 12:02 MDD [email or web address]) Hip Strength Hip Manual Muscle Testing Right Flexion (L2) 4+ Good+ Extension (S1) 4+ Good+ Abduction 5 Normal External Rotation 5 Normal Internal Rotation 5 Normal Left Flexion (L2) 4- Good- Extension (S1) 4+ Good+ Abduction 3+ Fair+ External Rotation 4- Good- Internal Rotation 4 Good Comments Resisted flexion and IR painful Knee Strength Knee Manual Muscle Testing Right Flexion (S2) 5 Normal Extension (L3) 5 Normal Left Flexion (S2) 5 Normal Extension (L3) 5 Normal PT-OP-Q Treatments Start: 09/23/17 09:43 Freq: Status: Active Protocol: Document 10/18/17 10:14 MDD (Rec: 10/18/17 10:31 [facility] [id number]) Cardio Equipment Recumbent Stepper (Sci-Fit) Duration (Minutes) 5 Resistance 3 Other emphasis on neutral LE alignment Gym Equipment Shuttle Balance Squats Details side/side squats Reps/Duration 5 Comments focus on equal weight through B LE's Standing bal Details EO front/back, side/side Therapeutic Exercises Supine Exercises Piriformis stretch. Side bilateral Reps/Minutes 2 x 30 seconds each Comments supine and sitting Straight leg raise Side bilateral Reps/Minutes 15 Comments focus on adding posterior pelvic tilt and stabilizing core Posterior pelvic tilts Supine Exercise Name TrA activation in supine with bent knee fallouts Reps/Minutes 10 Comments Education on TrA activation, palpation with both therapist and patient Standing Exercises standing ITB stretch Side bilateral Reps/Minutes 2 x 30 seconds single leg mini squats Side bilateral Equipment Used rail to maintain balance Reps/Minutes 8 Comments Focus on keeping knees in line with hips, toes squats Side bilateral Equipment Used L-1 t-band around thighs Reps/Minutes 20 Comments Use mirror for visual feedback , looking ahead and maintaing form PT-OP-T Assessment and Plan Start: 09/23/17 09:43 Freq: Status: Active Protocol: Document 10/18/17 10:14 MDD (Rec: 10/18/17 10:31 MDD [id number]) Physical Therapy Assessment Assessment Summary Assessment Demonstrates improved positioning for squats, needed some cueing for neutral spine . Overall improving significantly. Physical Therapy Plan Frequency and Duration Frequency of Treatment 1x/Week Duration of Treatment 8-12 weeks Plan of Care Start Date 09/23/17 Plan of Care End Date 12/24/17 Next Visit Focus/Plan Next Note Type Treatment Note Next Visit Plan continue progression of TrA strength. Focus on functional strength tests ie eccentric steps, single leg squats etc. Consider quadruped TrA activation.
--- NOTE | 2017-10-28 10:33 | PT.OTN ---
Current Diagnoses Pain in left hip (10/28/17) Physical Therapy Treatment Note PT-OP-A Visit Information Start: 09/23/17 09:43 Freq: Status: Active Protocol: Document 10/28/17 10:46 MDD (Rec: 10/28/17 10:55 MDD [id number]) Out-Patient Physical Therapy Visit Information Visit Information Visit Type Treatment Note Visit Start Time 09:51 Visit Stop Time 10:33 Total Visit Minutes 42 Visit Number 6 Number of HEAD GAUGE UNIT OPERATOR Visits 0 Evaluation Information Evaluation Date 09/23/17 PT-OP-B Current Condition Start: 09/23/17 09:43 Freq: Status: Active Protocol: Document 09/23/17 10:30 MDD (Rec: 09/23/17 12:02 MDD [email or web address]) Current Condition History of Current Condition Onset Date fall Current Complaints L hip pain, posterior and deep , occasionally radiates anteriorly History of Current Condition Pain began incidiously, pt reports symptoms B, L > R. Did have medial meniscal tear 3 years ago, nonoperative management with PT. Described as deep stinging, intermittently sharp with stair climbing/WB. Aggravating factors include walking long distances and getting up from sitting prolonged periods. Intermittent spasms noted when laying in bed/sitting. Unable to lay/sleep comfortably on either side. No clicking/popping noted. Prior Treatments and Tests Recent x-ray does not demonstrate degenerative disease per pt report. Pt currently seeing chiropractor - just started treatment, no real change thus far. Foam roll is relieving/performs intermittently. Very infrequently takes ibuprofen if really aggravated. Future Testing and Treatments Planned NA Treatment Goals Patient/Caregiver Goals Pt to tolerate climbing stairs without pain. Pt to tolerate sleeping through the night without left hip pain. 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 Baseline Function- Recreation/Hobbies Gardening, walking. When traveling pt prefers to walk. Trip to [place] last summer walked 10 miles daily x 3 weeks. Would like to take a trip next summer as well. Current Functional Impairments (Reported) Functional Limitations- Mobility/Gait Sitting greater than 30 minutes Ascending/descending stairs Gait greater than 1 mile Personal Factors Other Personal Factors That May Effect Pt with recent diagnosis of Therapy/Recovery breast cancer - currently taking Tamoxifen and in chemically induced menopause. Reports very few negative side effects at this time. PT-OP-C Subjective Start: 09/23/17 09:43 Freq: Status: Active Protocol: Document 10/28/17 10:46 MDD (Rec: 10/28/17 10:55 MDD [id number]) OP-PT Subjective Patient Comments Patient Comments Pt reports symptoms continue to improve. However, when sitting renee cross apple sauce for 30 minutes noticed increased pain again that took over 24 hours to improve. Patient Reported Progress Improving PT-OP-F Manual Assessment Start: 09/23/17 09:43 Freq: Status: Active Protocol: Document 09/23/17 10:30 MDD (Rec: 09/23/17 12:02 MDD [email or web address]) Manual Assessments Other Manual Assessments Other Manual Assessments L iliac crest/PSIS/ASIS appear elevated in standing, increased lumbar lordosis noted. PT-OP-G Mobility & Gait Start: 09/23/17 09:43 Freq: Status: Active Protocol: Document 09/23/17 10:30 MDD (Rec: 09/23/17 12:02 MDD [email or web address]) OP Mobility Evaluation Bed Mobility Rolling Independent Supine to and from Sit Independent Transfers Sit to Stand Independent Bed to Chair Transfers Independent Functional Movements Squats Independent, single leg squats aggravate L hip pain on L, demonstrates functional hip weakness with patella drifting medial OP Gait Assessment Gait Gait Assistance Required: Independent Distance (Feet) (feet) 20 Able to Maintain Weight Bearing Status Yes During Gait Gait Deviations General Gait Pattern Antalgic PT-OP-J Posture/Palpation/Skin Start: 09/23/17 09:43 Freq: Status: Active Protocol: Document 09/23/17 10:30 MDD (Rec: 09/23/17 12:02 MDD [email or web address]) Posture Evaluation Comments Posture Comments L iliac crest/PSIS/ ASIS elevated in standing. Increase lumbar lordosis. Palpation Assessment Location One Palpation Location B piriformis Palpation Findings Soft Tissue Tightness Palpation Details L piriformis ttp with palpable tightness noted PT-OP-K Range of Motion Start: 09/23/17 09:43 Freq: Status: Active Protocol: Document 10/28/17 10:46 MDD (Rec: 10/28/17 10:55 MDD [id number]) Hip Goniometric Range of Motion Hip Measured in Degrees Right Hip ROM WFL Yes Testing Position Supine External Rotation 51 Left Hip ROM WFL Yes Testing Position Supine External Rotation 60 PT-OP-L Special Tests Start: 09/23/17 09:43 Freq: Status: Active Protocol: Document 09/23/17 10:30 MDD (Rec: 09/23/17 12:02 MDD [email or web address]) Special Tests Lumbar Spine Special Tests Straight Leg Raise Test Results - Comments HS tightness L >R Stork Test Test Results + instability and pain L LE Hip Special Tests Courtney's Test Test Results quad shortness R>L straight leg Test Results - B Comments hamstring shortness L > R Scour Test Test Results + increased pain L hip OLAYINKA Test Results + increased pain L groin and posterior hip PT-OP-M Strength Start: 09/23/17 09:43 Freq: Status: Active Protocol: Document 09/23/17 10:30 MDD (Rec: 09/23/17 12:02 MDD [email or web address]) Hip Strength Hip Manual Muscle Testing Right Flexion (L2) 4+ Good+ Extension (S1) 4+ Good+ Abduction 5 Normal External Rotation 5 Normal Internal Rotation 5 Normal Left Flexion (L2) 4- Good- Extension (S1) 4+ Good+ Abduction 3+ Fair+ External Rotation 4- Good- Internal Rotation 4 Good Comments Resisted flexion and IR painful Knee Strength Knee Manual Muscle Testing Right Flexion (S2) 5 Normal Extension (L3) 5 Normal Left Flexion (S2) 5 Normal Extension (L3) 5 Normal PT-OP-Q Treatments Start: 09/23/17 09:43 Freq: Status: Active Protocol: Document 10/28/17 10:46 MDD (Rec: 10/28/17 10:55 [facility] [id number]) Cardio Equipment Recumbent Stepper (Sci-Fit) Duration (Minutes) 5 Resistance 4-6 Other emphasis on neutral LE alignment Gym Equipment Shuttle Balance Squats Details side/side squats Reps/Duration 5 Comments focus on equal weight through B LE's Therapeutic Exercises Supine Exercises Posterior pelvic tilts Supine Exercise Name TrA activation in supine - alternate heel lifts Equipment Used blood pressure cuff for biofeedback Reps/Minutes 10 Comments Education on TrA activation, palpation with both therapist and patient Standing Exercises single leg mini squats Standing Exercise Name modified to standing hip hikes Side bilateral Reps/Minutes 2 x 15 squats Side bilateral Reps/Minutes 20 Comments Practice without mirror today Therapeutic Activity Therapeutic Activity Sitting cross legged Reps/Minutes 2 minutes Comments Use of pillow underneath L knee to limit end range hip ER . PT-OP-T Assessment and Plan Start: 09/23/17 09:43 Freq: Status: Active Protocol: Document 10/28/17 10:46 MDD (Rec: 10/28/17 10:55 MDD [id number]) Physical Therapy Assessment Progress Towards Goals Progress Towards Goals Progressing Toward Goals Assessment Summary Assessment Demonstrating improved strength in L hip, continues to have increased motion, especially in ER Physical Therapy Plan Frequency and Duration Frequency of Treatment 1x/Week Duration of Treatment 8-12 weeks Plan of Care Start Date 09/23/17 Plan of Care End Date 12/24/17 Next Visit Focus/Plan Next Note Type Treatment Note Next Visit Plan review response to trial of cross legged sitting with pillow. Progress therex as appropriate.
--- NOTE | 2017-11-04 10:33 | PT.OTN ---
Current Diagnoses Pain in left hip (11/04/17) Physical Therapy Treatment Note PT-OP-A Visit Information Start: 09/23/17 09:43 Freq: Status: Active Protocol: Document 11/04/17 10:33 MDD (Rec: 11/04/17 11:02 MDD [email or web address]) Out-Patient Physical Therapy Visit Information Visit Information Visit Type Treatment Note Visit Start Time 09:51 Visit Stop Time 10:33 Total Visit Minutes 42 Visit Number 7 Number of MACHINE FORMER Visits 0 Evaluation Information Evaluation Date 09/23/17 PT-OP-B Current Condition Start: 09/23/17 09:43 Freq: Status: Active Protocol: Document 09/23/17 10:30 MDD (Rec: 09/23/17 12:02 MDD [email or web address]) Current Condition History of Current Condition Onset Date fall Current Complaints L hip pain, posterior and deep , occasionally radiates anteriorly History of Current Condition Pain began incidiously, pt reports symptoms B, L > R. Did have medial meniscal tear 3 years ago, nonoperative management with PT. Described as deep stinging, intermittently sharp with stair climbing/WB. Aggravating factors include walking long distances and getting up from sitting prolonged periods. Intermittent spasms noted when laying in bed/sitting. Unable to lay/sleep comfortably on either side. No clicking/popping noted. Prior Treatments and Tests Recent x-ray does not demonstrate degenerative disease per pt report. Pt currently seeing chiropractor - just started treatment, no real change thus far. Foam roll is relieving/performs intermittently. Very infrequently takes ibuprofen if really aggravated. Future Testing and Treatments Planned NA Treatment Goals Patient/Caregiver Goals Pt to tolerate climbing stairs without pain. Pt to tolerate sleeping through the night without left hip pain. 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 Baseline Function- Recreation/Hobbies Gardening, walking. When traveling pt prefers to walk. Trip to [place] last summer walked 10 miles daily x 3 weeks. Would like to take a trip next summer as well. Current Functional Impairments (Reported) Functional Limitations- Mobility/Gait Sitting greater than 30 minutes Ascending/descending stairs Gait greater than 1 mile Personal Factors Other Personal Factors That May Effect Pt with recent diagnosis of Therapy/Recovery breast cancer - currently taking Tamoxifen and in chemically induced menopause. Reports very few negative side effects at this time. PT-OP-C Subjective Start: 09/23/17 09:43 Freq: Status: Active Protocol: Document 11/04/17 10:33 MDD (Rec: 11/04/17 11:02 MDD [email or web address]) OP-PT Subjective Patient Comments Patient Comments Pt went on a kayaking/hiking trip over the weekend. Reports soreness allover, most in her L hip, but felt that she bounced back much more quickly than in the past. No pain today. Patient Reported Progress Improving PT-OP-F Manual Assessment Start: 09/23/17 09:43 Freq: Status: Active Protocol: Document 09/23/17 10:30 MDD (Rec: 09/23/17 12:02 MDD [email or web address]) Manual Assessments Other Manual Assessments Other Manual Assessments L iliac crest/PSIS/ASIS appear elevated in standing, increased lumbar lordosis noted. PT-OP-G Mobility & Gait Start: 09/23/17 09:43 Freq: Status: Active Protocol: Document 09/23/17 10:30 MDD (Rec: 09/23/17 12:02 MDD [email or web address]) OP Mobility Evaluation Bed Mobility Rolling Independent Supine to and from Sit Independent Transfers Sit to Stand Independent Bed to Chair Transfers Independent Functional Movements Squats Independent, single leg squats aggravate L hip pain on L, demonstrates functional hip weakness with patella drifting medial OP Gait Assessment Gait Gait Assistance Required: Independent Distance (Feet) (feet) 20 Able to Maintain Weight Bearing Status Yes During Gait Gait Deviations General Gait Pattern Antalgic PT-OP-J Posture/Palpation/Skin Start: 09/23/17 09:43 Freq: Status: Active Protocol: Document 09/23/17 10:30 MDD (Rec: 09/23/17 12:02 MDD [email or web address]) Posture Evaluation Comments Posture Comments L iliac crest/PSIS/ ASIS elevated in standing. Increase lumbar lordosis. Palpation Assessment Location One Palpation Location B piriformis Palpation Findings Soft Tissue Tightness Palpation Details L piriformis ttp with palpable tightness noted PT-OP-K Range of Motion Start: 09/23/17 09:43 Freq: Status: Active Protocol: Document 10/28/17 10:46 MDD (Rec: 10/28/17 10:55 MDD [id number]) Hip Goniometric Range of Motion Hip Measured in Degrees Right Hip ROM WFL Yes Testing Position Supine External Rotation 51 Left Hip ROM WFL Yes Testing Position Supine External Rotation 60 PT-OP-L Special Tests Start: 09/23/17 09:43 Freq: Status: Active Protocol: Document 09/23/17 10:30 MDD (Rec: 09/23/17 12:02 MDD [email or web address]) Special Tests Lumbar Spine Special Tests Straight Leg Raise Test Results - Comments HS tightness L >R Stork Test Test Results + instability and pain L LE Hip Special Tests Courtney's Test Test Results quad shortness R>L straight leg Test Results - B Comments hamstring shortness L > R Scour Test Test Results + increased pain L hip OLAYINKA Test Results + increased pain L groin and posterior hip PT-OP-M Strength Start: 09/23/17 09:43 Freq: Status: Active Protocol: Document 09/23/17 10:30 MDD (Rec: 09/23/17 12:02 MDD [email or web address]) Hip Strength Hip Manual Muscle Testing Right Flexion (L2) 4+ Good+ Extension (S1) 4+ Good+ Abduction 5 Normal External Rotation 5 Normal Internal Rotation 5 Normal Left Flexion (L2) 4- Good- Extension (S1) 4+ Good+ Abduction 3+ Fair+ External Rotation 4- Good- Internal Rotation 4 Good Comments Resisted flexion and IR painful Knee Strength Knee Manual Muscle Testing Right Flexion (S2) 5 Normal Extension (L3) 5 Normal Left Flexion (S2) 5 Normal Extension (L3) 5 Normal PT-OP-Q Treatments Start: 09/23/17 09:43 Freq: Status: Active Protocol: Document 11/04/17 10:33 MDD (Rec: 11/04/17 11:02 MDD [email or web address]) Cardio Equipment Recumbent Elliptical (Biodex) Duration (Minutes) 5 Resistance 6 Gym Equipment Shuttle Balance Squats Details side/side squats Reps/Duration 10 Comments focus on equal weight through B LE's Therapeutic Ball Bosu Exercise Details forward/side lunges Ball Size/Color Bosu Body Position Standing Reps/Duration 5 each direction Comments Focus on proper TrA and hip activation, proper positioning with knees over toes Praying mantis Exercise Details TrA activation Ball Size/Color 65 cm Body Position Prone Reps/Duration 10 x 5 second holds Comments tall kneeling with elbows/ forearms on ball maintaining neutral spine with walk outs. Seated marching Exercise Details TrA activation in sitting Ball Size/Color 65 cm Body Position Sitting Reps/Duration 10 Comments alternate leg marching, stabilizing pelvis/trunk Therapeutic Exercises Supine Exercises Piriformis stretch. Supine Exercise Name modified to seated cross body (FADIR position) Side bilateral Reps/Minutes 2 x 30 seconds Posterior pelvic tilts Supine Exercise Name TrA activation in supine - alternate heel slides Equipment Used blood pressure cuff for biofeedback Reps/Minutes 10 Comments Education on TrA activation, palpation with both therapist and patient PT-OP-T Assessment and Plan Start: 09/23/17 09:43 Freq: Status: Active Protocol: Document 11/04/17 10:33 MDD (Rec: 11/04/17 11:02 MDD [email or web address]) Physical Therapy Assessment Progress Towards Goals Progress Towards Goals Progressing Toward Goals Progress Comments Pt was able to participate in hiking/kayaking without significant pain in L hip. Assessment Summary Assessment Demonstrating improved strength in L hip, continues to have increased motion, especially in ER Physical Therapy Plan Frequency and Duration Frequency of Treatment Every Other Week Duration of Treatment 8-12 weeks Plan of Care Start Date 09/23/17 Plan of Care End Date 12/24/17 Next Visit Focus/Plan Next Note Type Treatment Note Next Visit Plan Review HEP, progress as tolerated. Discussed varying aerobic exercise today, pt plans on doing yoga 2x week.
--- NOTE | 2018-01-26 11:32 | PT.OPDS ---
Current Diagnoses Pain in left hip (11/04/17) Provider Visit Care Team Role Provider Type Hayley Gillis MD Attending Provider Physician Family Provider Primary Care Provider Specialty: Family Practice Address: [address] [place] [address], [id number] Email: Visit Number Visit Number 7 Discharge Summary PT-OP-B Current Condition Start: 09/23/17 09:43 Freq: Status: Active Protocol: Document 09/23/17 10:30 MDD (Rec: 09/23/17 12:02 MDD [email or web address]) Current Condition History of Current Condition Onset Date fall Current Complaints L hip pain, posterior and deep , occasionally radiates anteriorly History of Current Condition Pain began incidiously, pt reports symptoms B, L > R. Did have medial meniscal tear 3 years ago, nonoperative management with PT. Described as deep stinging, intermittently sharp with stair climbing/WB. Aggravating factors include walking long distances and getting up from sitting prolonged periods. Intermittent spasms noted when laying in bed/sitting. Unable to lay/sleep comfortably on either side. No clicking/popping noted. Prior Treatments and Tests Recent x-ray does not demonstrate degenerative disease per pt report. Pt currently seeing chiropractor - just started treatment, no real change thus far. Foam roll is relieving/performs intermittently. Very infrequently takes ibuprofen if really aggravated. Future Testing and Treatments Planned NA Treatment Goals Patient/Caregiver Goals Pt to tolerate climbing stairs without pain. Pt to tolerate sleeping through the night without left hip pain. 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 Baseline Function- Recreation/Hobbies Gardening, walking. When traveling pt prefers to walk. Trip to [place] last summer walked 10 miles daily x 3 weeks. Would like to take a trip next summer as well. Current Functional Impairments (Reported) Functional Limitations- Mobility/Gait Sitting greater than 30 minutes Ascending/descending stairs Gait greater than 1 mile Personal Factors Other Personal Factors That May Effect Pt with recent diagnosis of Therapy/Recovery breast cancer - currently taking Tamoxifen and in chemically induced menopause. Reports very few negative side effects at this time. PT-OP-C Subjective Start: 09/23/17 09:43 Freq: Status: Active Protocol: Document 11/04/17 10:33 MDD (Rec: 11/04/17 11:02 MDD [email or web address]) OP-PT Subjective Patient Comments Patient Comments Pt went on a kayaking/hiking trip over the weekend. Reports soreness allover, most in her L hip, but felt that she bounced back much more quickly than in the past. No pain today. Patient Reported Progress Improving PT-OP-F Manual Assessment Start: 09/23/17 09:43 Freq: Status: Active Protocol: Document 09/23/17 10:30 MDD (Rec: 09/23/17 12:02 MDD [email or web address]) Manual Assessments Other Manual Assessments Other Manual Assessments L iliac crest/PSIS/ASIS appear elevated in standing, increased lumbar lordosis noted. PT-OP-G Mobility & Gait Start: 09/23/17 09:43 Freq: Status: Active Protocol: Document 09/23/17 10:30 MDD (Rec: 09/23/17 12:02 MDD [email or web address]) OP Mobility Evaluation Bed Mobility Rolling Independent Supine to and from Sit Independent Transfers Sit to Stand Independent Bed to Chair Transfers Independent Functional Movements Squats Independent, single leg squats aggravate L hip pain on L, demonstrates functional hip weakness with patella drifting medial OP Gait Assessment Gait Gait Assistance Required: Independent Distance (Feet) 20 Able to Maintain Weight Bearing Status Yes During Gait Gait Deviations General Gait Pattern Antalgic PT-OP-J Posture/Palpation/Skin Start: 09/23/17 09:43 Freq: Status: Active Protocol: Document 09/23/17 10:30 MDD (Rec: 09/23/17 12:02 MDD [email or web address]) Posture Evaluation Comments Posture Comments L iliac crest/PSIS/ ASIS elevated in standing. Increase lumbar lordosis. Palpation Assessment Location One Palpation Location B piriformis Palpation Findings Soft Tissue Tightness Palpation Details L piriformis ttp with palpable tightness noted PT-OP-K Range of Motion Start: 09/23/17 09:43 Freq: Status: Active Protocol: Document 10/28/17 10:46 MDD (Rec: 10/28/17 10:55 MDD [id number]) Hip Goniometric Range of Motion Hip Measured in Degrees Right Hip ROM WFL Yes Testing Position Supine External Rotation 51 Left Hip ROM WFL Yes Testing Position Supine External Rotation 60 PT-OP-L Special Tests Start: 09/23/17 09:43 Freq: Status: Active Protocol: Document 09/23/17 10:30 MDD (Rec: 09/23/17 12:02 MDD [email or web address]) Special Tests Lumbar Spine Special Tests Straight Leg Raise Test Results - Comments HS tightness L >R Stork Test Test Results + instability and pain L LE Hip Special Tests Courtney's Test Test Results quad shortness R>L straight leg Test Results - B Comments hamstring shortness L > R Scour Test Test Results + increased pain L hip OLAYINKA Test Results + increased pain L groin and posterior hip PT-OP-M Strength Start: 09/23/17 09:43 Freq: Status: Active Protocol: Document 09/23/17 10:30 MDD (Rec: 09/23/17 12:02 MDD [email or web address]) Hip Strength Hip Manual Muscle Testing Right Flexion (L2) 4+ Good+ Extension (S1) 4+ Good+ Abduction 5 Normal External Rotation 5 Normal Internal Rotation 5 Normal Left Flexion (L2) 4- Good- Extension (S1) 4+ Good+ Abduction 3+ Fair+ External Rotation 4- Good- Internal Rotation 4 Good Comments Resisted flexion and IR painful Knee Strength Knee Manual Muscle Testing Right Flexion (S2) 5 Normal Extension (L3) 5 Normal Left Flexion (S2) 5 Normal Extension (L3) 5 Normal PT-OP-T Assessment and Plan Start: 09/23/17 09:43 Freq: Status: Active Protocol: Document 01/26/18 11:30 [facility] (Rec: 01/26/18 11:31 [facility] [id number]) Physical Therapy Plan Discharge Physical Therapy Discharge Reasons No Longer Attending PT Discharge Comments Patient was making good progress with PT but did not schedule any further visits after 11/04/17 visit. Should do well with continued HEP.
== END 2018-02-24 10:53 ==
LOC: PHYS 09:45
PROVIDERS: Family Provider Family Medicine; PCP Family Medicine; Visit Provider Family Medicine
DX: M25.552 Pain in left hip (principal)
CPT/HCPCS: 97110; 97112; 97140; 97161; 97535

== ENCOUNTER → 2017-12-05 13:00 | Outpatient (CLI) | payer OTHER, SELFPAY | PROVIDERS: Family Provider Family Medicine; PCP Family Medicine | DX: Z23 Encounter for immunization (principal) | CPT/HCPCS: 90471; 90686 ==

== ENCOUNTER → 2018-03-20 10:44 | Outpatient (REF) | payer OTHER, SELFPAY | LOC: LAB 10:44 | PROVIDERS: Family Provider Family Medicine; PCP Family Medicine; Visit Provider Nurse Practitioner Family | DX: R35.0 Frequency of micturition (principal); R30.0 Dysuria | CPT/HCPCS: 87086 ==

== ENCOUNTER → 2018-11-21 09:40 | Outpatient (CLI) | payer OTHER, SELFPAY ==
--- NOTE | 2018-11-21 | DI.US.S_ITS ---
PROCEDURE: US ABDOMEN COMPLETE INDICATIONS: ABDOMINAL PAIN, EPIGASTRIC PAIN, BLOATING TECHNIQUE: Real-time scanning was performed of the abdominal and retroperitoneal organs, with image documentation. COMPARISON: None. FINDINGS: Liver: Liver is diffusely increased in echogenicity. No focal hepatic abnormalities identified. Normal hepatic size. Focal fatty sparing adjacent to the gallbladder. Gallbladder: No gallstones identified. Normal gallbladder wall. No pericholecystic fluid. Negative sonographic Day sign. Biliary ducts: Intrahepatic bile ducts are non-dilated. Extrahepatic bile duct caliber measures 3.8 mm. Normal is 6-7 mm or less in diameter, or 10 mm or less post-cholecystectomy. Pancreas: Suboptimally visualized. Spleen: Spleen is normal in size and homogeneous in echotexture. Kidneys: Kidneys are normal in size and echotexture. Right kidney measures 13.1 cm long; left kidney measures 12.1 cm long. No hydronephrosis or nephrolithiasis. No solid masses. Aorta: Visualized aorta is normal in caliber at less than 3 cm. Iliacs: Proximal common iliac arteries are normal in caliber at less than 2.5 cm. IVC: Intrahepatic inferior vena cava is patent. Miscellaneous: No free abdominal fluid. IMPRESSION: Increased hepatic echogenicity noted possibly related to hepatic steatosis but other sources of hepatocellular disease cannot be excluded. Recommend clinical correlation. Dictated by: Nathaniel STILES Interpreted: Winsome Hoff MD on 11/21/2018 at 10:56 Approved by: Winsome Hoff M.D. on 11/21/2018 at 16:07
== END ==
PROVIDERS: Family Provider Family Medicine; PCP Family Medicine; Visit Provider Family Medicine
DX: R10.13 Epigastric pain (principal); R14.0 Abdominal distension (gaseous)
CPT/HCPCS: 76700

== ENCOUNTER → 2018-12-27 11:41 | Outpatient (CLI) | payer OTHER, SELFPAY | PROVIDERS: PCP Family Medicine | DX: Z23 Encounter for immunization (principal) | CPT/HCPCS: 90471; 90686 ==

== ENCOUNTER 2019-09-09 14:09 | Outpatient (RCR) | payer OTHER, SELFPAY ==
--- NOTE | 2019-09-09 18:02 | PT.OIE ---
Current Diagnoses Vestibular neuronitis, right ear (09/09/19) Dizziness and giddiness (09/09/19) Past Surgical History History of third molar tooth extraction Status post appendectomy Status post breast biopsy Status post laparoscopic supracervical hysterectomy (05/17/14) Visit Care Team Role Provider Type Hayley Gillis MD Attending Provider Physician Primary Care Provider Referring Provider Specialty: [facility] Address: [address] [place] [address], [facility] [place], [facility] Email: [email or web address] Physical Therapy Initial Evaluation PT-OP-A Visit Information Start: 09/09/19 17:40 Freq: Status: Active Protocol: Document 09/09/19 14:30 DCW (Rec: 09/09/19 18:02 DCW [id number]) Out-Patient Physical Therapy Visit Information Visit Information Visit Type Initial Evaluation Visit Start Time 14:30 Visit Stop Time 15:15 Total Visit Minutes 45 Visit Number 1 Number of DIRECT SUPPORT STAFF MEMBER Visits 0 Evaluation Information Evaluation Date 09/09/19 PT-OP-B Current Condition Start: 09/09/19 17:40 Freq: Status: Active Protocol: Document 09/09/19 14:30 DCW (Rec: 09/09/19 18:02 DCW [id number]) Current Condition History of Current Condition Onset Date 09/09/19 Current Complaints low-level dizziness worsened by head movements or increased visual motion History of Current Condition Pt is a 49 year old female complaining of a seven hour history of spontaneous vertigo . Pt reports episode started this morning while at work, and in addition to vertigo, feels like she is very foggy and fatigued. Pt reports that she feels very dizzy with any sort of head movement or increased visual motion, but has constant low-level dizziness even at rest. Symptoms are worsened by looking down or riding as a passenger in a car. Pt denies recent hearing changes, tinnitus, or diplopia. Pt reports no history of other vestibular disorders, and no recent illness. Treatment Goals Patient/Caregiver Goals Relief from dizziness! PT-OP-C Subjective Start: 09/09/19 17:40 Freq: Status: Active Protocol: Document 09/09/19 14:30 DCW (Rec: 09/09/19 18:02 DCW [id number]) OP-PT Subjective Patient Comments Patient Comments I feel like I'm drunk without actually being drunk. Patient Questionnaires Dizziness Handicap Inventory DHI Score 72% DHI Functional Impairment 60 to 79% Impaired (Score 60- 79) PT-OP-O Vestibular Start: 09/09/19 17:40 Freq: Status: Active Protocol: Document 09/09/19 14:30 DCW (Rec: 09/09/19 18:02 [facility] [id number]) Vestibular Assessment Auditory Tests Peña Test Positive Rinne Test Negative Air Conduction Results Left Greater Visual Testing Smooth Pursuits Horizontal WNL Smooth Pursuits Vertical WNL Saccades Horizontal WNL Gaze Evoked Nystagmus With Fixation Negative Gaze Evoked Nystagmus Without Fixation Negative Heave Test Positive Right Thrust Head Positive Right Hardik String Test WNL DVA (Line Degradation) 5 Head Shake Positive Positional Testing Zelalem-Hallpike Negative Left,Negative Right Rolling Test Negative Left,Negative Right Comments Vestibular Comments Shake test resulted in Right horizontal nystagmus approximately 10 beats PT-OP-T Assessment and Plan Start: 09/09/19 17:40 Freq: Status: Active Protocol: Document 09/09/19 14:30 DCW (Rec: 09/09/19 18:02 [facility] [id number]) Physical Therapy Assessment Rehab Potential Rehabilitation Potential Excellent Evaluation Complexity Number of Personal Factors/Comorbidities 1-2 Number of Body Systems Impaired 1-2 Clinical Presentation at Evaluation Unstable Impairments Impairments Balance,Vestibular Goals 2 Impairment Positive head shake test Virtualization Architect Goal (LTG) Pt to present with a negative head shake test LTG Duration 11/10/19 1 Impairment Pt scores a 72% dizability on the Dizziness Handicap Inventory Short Term Goal (STG) Pt to score <35% on the DHI STG Duration 10/24/19 Assessment Summary Assessment Pt presents with signs and symptoms consistent with a unilateral vestibular loss, likely vestibular neuritis or labrynthitis. The main difference being hearing loss with labrynthitis, pt felt air conduction was slightly better on the left, however difficult to say for sure without an audiogram. Pt presented with complaints of dizziness with head turns, visual motion, a feeling of turning when being pushed in a wheelchair earlier today, and positive head thrust test, positive heave test, and a positive head shake test, all suggestive of a mild right- sided vestibular loss. Pt is currently in the acute phase of possible vestibular neuritis/labrynthitis, and at this time will likely get more benefit from general rest, however following the acute phase, within the next ~1 week , pt will benefit from vestibular rehabilitation to eliminate any residual vestibular dysfunction. Mild cases of VN/Labrynthitis may result in no continuing symptoms, and if that is the case, pt would likely be safe for discharge at that time. Physical Therapy Plan Frequency and Duration Frequency of Treatment 1x/Week Duration of Treatment 6 weeks Plan of Care Start Date 09/09/19 Plan of Care End Date 10/21/19 Therapeutic Interventions Therapeutic Interventions Balance Training,Canalithic Repositioning,Manual Therapy, Neuromuscular Re-education, Patient/Caregiver Education, Self-Care/Home Management, Vestibular Rehabilitation Next Visit Focus/Plan Next Note Type Treatment Note Next Visit Plan Further testing, vestibular rehabilitation including adaptation exercises
--- NOTE | 2019-09-09 18:03 | PT.OPPOC ---
Physical, Occupational & Speech Therapy At [facility] Current Diagnoses Vestibular neuronitis, right ear (09/09/19) Dizziness and giddiness (09/09/19) Visit Care Team Role Provider Type Hayley Gillis MD Attending Provider Physician Primary Care Provider Referring Provider Specialty: [facility] Address: [address] [place] [address], [facility] [place], [facility] Email: [email or web address] Plan Of Care PT-OP-T Assessment and Plan Start: 09/09/19 17:40 Freq: Status: Active Protocol: Document 09/09/19 14:30 DCW (Rec: 09/09/19 18:02 DCW [id number]) Physical Therapy Assessment Rehab Potential Rehabilitation Potential Excellent Evaluation Complexity Number of Personal Factors/Comorbidities 1-2 Number of Body Systems Impaired 1-2 Clinical Presentation at Evaluation Unstable Impairments Impairments Balance,Vestibular Goals 2 Impairment Positive head shake test Fci Goal (LTG) Pt to present with a negative head shake test LTG Duration 11/10/19 1 Impairment Pt scores a 72% dizability on the Dizziness Handicap Inventory Short Term Goal (STG) Pt to score <35% on the DHI STG Duration 10/24/19 Assessment Summary Assessment Pt presents with signs and symptoms consistent with a unilateral vestibular loss, likely vestibular neuritis or labrynthitis. The main difference being hearing loss with labrynthitis, pt felt air conduction was slightly better on the left, however difficult to say for sure without an audiogram. Pt presented with complaints of dizziness with head turns, visual motion, a feeling of turning when being pushed in a wheelchair earlier today, and positive head thrust test, positive heave test, and a positive head shake test, all suggestive of a mild right- sided vestibular loss. Pt is currently in the acute phase of possible vestibular neuritis/labrynthitis, and at this time will likely get more benefit from general rest, however following the acute phase, within the next ~1 week , pt will benefit from vestibular rehabilitation to eliminate any residual vestibular dysfunction. Mild cases of VN/Labrynthitis may result in no continuing symptoms, and if that is the case, pt would likely be safe for discharge at that time. Physical Therapy Plan Frequency and Duration Frequency of Treatment 1x/Week Duration of Treatment 6 weeks Plan of Care Start Date 09/09/19 Plan of Care End Date 10/21/19 Therapeutic Interventions Therapeutic Interventions Balance Training,Canalithic Repositioning,Manual Therapy, Neuromuscular Re-education, Patient/Caregiver Education, Self-Care/Home Management, Vestibular Rehabilitation Next Visit Focus/Plan Next Note Type Treatment Note Next Visit Plan Further testing, vestibular rehabilitation including adaptation exercises Plan of Care Dates Plan of Care Start Date 09/09/19 Plan of Care End Date 10/21/19 Electronically Signed by: Colt Dejesus, PT 09/09/19 5425 Please Sign and Return: I have reviewed this Plan of Care and certify that the skilled therapy services above are required to meet the patient?s needs. Physician Signature Date Printed Name and Credentials Clinical Instructor Signature Printed Name and Credentials
--- NOTE | 2019-12-16 17:36 | PT.OPDS ---
Current Diagnoses Vestibular neuronitis, right ear (09/09/19) Dizziness and giddiness (09/09/19) Visit Care Team Role Provider Type Hayley Gillis MD Attending Provider Physician Primary Care Provider Referring Provider Specialty: [facility] Address: [address] [place] [address], [place], [address] Email: [email or web address] Visit Number Visit Number 1 Discharge Summary PT-OP-B Current Condition Start: 09/09/19 17:40 Freq: Status: Active Protocol: Document 09/09/19 14:30 DCW (Rec: 09/09/19 18:02 DCW [id number]) Current Condition History of Current Condition Onset Date 09/09/19 Current Complaints low-level dizziness worsened by head movements or increased visual motion History of Current Condition Pt is a 49 year old female complaining of a seven hour history of spontaneous vertigo . Pt reports episode started this morning while at work, and in addition to vertigo, feels like she is very foggy and fatigued. Pt reports that she feels very dizzy with any sort of head movement or increased visual motion, but has constant low-level dizziness even at rest. Symptoms are worsened by looking down or riding as a passanger in a car. Pt denies recent hearing changes, tinnitus, or diplopia. Pt reports no history of other vestibular disorders, and no recent illness. Treatment Goals Patient/Caregiver Goals Relief from dizziness! PT-OP-C Subjective Start: 09/09/19 17:40 Freq: Status: Active Protocol: Document 09/09/19 14:30 DCW (Rec: 09/09/19 18:02 DCW [id number]) OP-PT Subjective Patient Comments Patient Comments I feel like I'm drunk without actually being drunk. Patient Questionnaires Dizziness Handicap Inventory DHI Score 72% DHI Functional Impairment 60 to 79% Impaired (Score 60- 79) PT-OP-O Vestibular Start: 09/09/19 17:40 Freq: Status: Active Protocol: Document 09/09/19 14:30 DCW (Rec: 09/09/19 18:02 DCW [id number]) Vestibular Assessment Auditory Tests Peña Test Positive Rinne Test Negative Air Conduction Results Left Greater Visual Testing Smooth Pursuits Horizontal WNL Smooth Pursuits Vertical WNL Saccades Horizontal WNL Gaze Evoked Nystagmus With Fixation Negative Gaze Evoked Nystagmus Without Fixation Negative Heave Test Positive Right Thrust Head Positive Right Hardik String Test WNL DVA (Line Degradation) 5 Head Shake Positive Positional Testing Zelalem-Hallpike Negative Left,Negative Right Rolling Test Negative Left,Negative Right Comments Vestibular Comments Shake test resulted in Right horizontal nystagmus approximately 10 beats PT-OP-T Assessment and Plan Start: 09/09/19 17:40 Freq: Status: Active Protocol: Document 12/16/19 17:34 DCW (Rec: 12/16/19 17:36 OKW [id number]) Physical Therapy Assessment Goals 2 Impairment Positive head shake test Usp Goal (LTG) Pt to present with a negative head shake test LTG Duration 11/10/19 1 Impairment Pt scores a 72% dizability on the Dizziness Handicap Inventory Short Term Goal (STG) Pt to score <35% on the DHI STG Duration 10/24/19 Assessment Summary Assessment Pt has not been seen for more than three months, and did not schedule any follow-up visits following her initial evaluation. Pt will be discharged from vestibular rehab at this time, and will require a new referral in order to return. Physical Therapy Plan Discharge Physical Therapy Discharge Reasons No Longer Attending PT Next Visit Focus/Plan Next Note Type Discharge Summary
== END 2019-12-21 13:57 ==
LOC: PHYS 14:09
PROVIDERS: PCP Family Medicine; Referring Provider Family Medicine; Visit Provider Family Medicine
DX: H81.21 Vestibular neuronitis, right ear (principal)
CPT/HCPCS: 97161

== ENCOUNTER → 2019-12-17 07:58 | Outpatient (CLI) | payer OTHER, SELFPAY ==
[2019-12-17 08:52] LABS: Add Manual Diff / Slide Review NO; Basophils Absolute Auto 100 /uL (0-100); Basophils Percent Auto 1.2 % (0-2); Eosinophils Absolute Auto 200 /uL (0-450); Eosinophils Percent Auto 4.5 % (2-4); Hematocrit 37.3 % (36-46); Hemoglobin 12.7 g/dL (12.0-16.0); Lymphocytes Absolute Auto 2100 /uL (1100-4500); Lymphocytes Percent Auto 44.8 % (25-40); Mean Corpuscular Volume 94.1 fL (80-100); Monocytes Absolute Auto 500 /uL (0-900); Monocytes Percent Auto 9.8 % (3-14); Neutrophils Absolute Auto 1800 /uL (1500-7000); Neutrophils Percent Auto 39.7 % (50-75); Platelet Count 246 X10^3/uL (150-400); Red Blood Cell Count 3.97 X10^6/uL (4.0-5.2); Red Cell Distribution Width 12.8 % (11.6-14.8); White Blood Cell Count 4.6 X10^3/uL (4.5-11.0)
[2019-12-17 08:55] LABS: Hemoglobin A1C% w Est Avg Glu 5.3 % (4.0-6.0)
[2019-12-17 09:41] LABS: Alanine Aminotransferase 17 IU/L (<35); Albumin 3.9 g/dL (3.5-5.0); Albumin Globulin Ratio 1.4 (1.0-2.8); Alkaline Phosphatase 84 U/L (38-126); Aspartate Aminotransferase 21 IU/L (14-36); BUN Creatinine Ratio 16.7 (6-22); Bilirubin Total 0.5 mg/dL (0.2-1.3); Blood Urea Nitrogen 11 mg/dL (7-17); Calcium 9.4 mg/dL (8.4-10.2); Carbon Dioxide 25 mmol/L (22-32); Chloride 106 mmol/L (98-107); Cholesterol 171 mg/dL (140-199); Estimated Glomerular Filt Rate > 60.0 mL/min (>60); Globulin 2.8 g/dL (1.7-4.1); Glucose 103 mg/dL (70-100); HDL Cholesterol 71 mg/dL (40-60); HEMOLYSIS < 15 (0-50); LDL Cholesterol Calculated 73 mg/dL (<100); Potassium 4.4 mmol/L (3.4-5.1); Sodium 138 mmol/L (137-145); Total Protein 6.7 g/dL (6.3-8.2); Triglycerides 135 mg/dL (35-150); VLDL Cholesterol Calculated 27 mg/dL (2-30)
[2019-12-17 10:08] LABS: TSH w/ Reflex to FT4 2.04 uIU/mL (0.47-4.68)
== END ==
PROVIDERS: PCP Family Medicine; Referring Provider Family Medicine; Visit Provider Family Medicine
DX: Z00.00 Encounter for general adult medical examination without abnormal findings (principal); R73.01 Impaired fasting glucose; Z80.9 Family history of malignant neoplasm, unspecified; R42 Dizziness and giddiness; C50.919 Malignant neoplasm of unspecified site of unspecified female breast; F41.8 Other specified anxiety disorders; F41.1 Generalized anxiety disorder
CPT/HCPCS: 36415; 80053; 80061; 83036; 84443; 85025

== ENCOUNTER → 2019-12-17 | Outpatient (CLI) | payer OTHER, SELFPAY | PROVIDERS: PCP Family Medicine; Referring Provider Internal Medicine; Visit Provider Internal Medicine | DX: Z23 Encounter for immunization (principal) | CPT/HCPCS: 90471; 90686 ==

== ENCOUNTER → 2020-02-09 10:17 | Outpatient (CLI) | payer OTHER, SELFPAY ==
--- NOTE | 2020-02-09 | DI.CT.S_ITS ---
PROCEDURE: CT SINUS SCREEN WO CON INDICATIONS: Sinusitis, Allergic Rhinitis, Migraine TECHNIQUE: Noncontrast 3.0 mm axial images acquired from the frontal sinuses to the mid-sella, with coronal and sagittal reformats. For radiation dose reduction, the following was used: automated exposure control, adjustment of mA and/or kV according to patient size. COMPARISON: [facility], CT, CT HEAD/BRAIN WO CON, 07/14/2017, 3:17. FINDINGS: Image quality: Excellent. Maxillary Sinuses: No bony remodeling or destruction. Sinuses are clear. Ethmoid Air Cells: No bony remodeling or destruction. Sinuses are clear. Sphenoid Sinuses: No bony remodeling or destruction. Sinuses are clear. Frontal Sinuses: No bony remodeling or destruction. Sinuses are clear. Ostiomeatal Complexes: Ostiomeatal complexes are patent. No Sonya cells. Miscellaneous: Visualized intra-orbital contents are normal. There is a right-sided jeremias bullosa is seen. Moderate leftward nasal septal deviation is seen. There is a left maxillary tooth seen, which is partially within the inferior aspect of the left maxillary sinus. IMPRESSION: No significant active paranasal sinus disease is seen. There is a left maxillary wisdom tooth, which is partially within the left maxillary sinus. Right-sided jeremias bullosa, with moderate leftward nasal septal deviation. Dictated by: Michael Lowery M.D. on 02/09/2020 at 9:41 Approved by: Michael Lowery M.D. on 02/09/2020 at 9:44
[2020-02-09 10:50] LABS: Add Manual Diff / Slide Review NO; Basophils Absolute Auto 100 /uL (0-100); Eosinophils Absolute Auto 200 /uL (0-450); Eosinophils Percent Auto 2.9 % (2-4); Hematocrit 38.2 % (36-46); Hemoglobin 12.8 g/dL (12.0-16.0); Lymphocytes Absolute Auto 2300 /uL (1100-4500); Mean Corpuscular HGB Conc 33.6 % (30-36); Mean Corpuscular Hemoglobin 31.7 PG (26-34); Mean Corpuscular Volume 94.5 fL (80-100); Monocytes Absolute Auto 600 /uL (0-900); Monocytes Percent Auto 9.4 % (3-14); Neutrophils Absolute Auto 2700 /uL (1500-7000); Neutrophils Percent Auto 46.7 % (50-75); Platelet Count 246 X10^3/uL (150-400); Red Blood Cell Count 4.05 X10^6/uL (4.0-5.2); Red Cell Distribution Width 12.8 % (11.6-14.8); White Blood Cell Count 5.9 X10^3/uL (4.5-11.0)
[2020-02-09 11:03] LABS: Alanine Aminotransferase 18 IU/L (<35); Albumin 4.2 g/dL (3.5-5.0); Albumin Globulin Ratio 1.3 (1.0-2.8); Alkaline Phosphatase 73 U/L (38-126); Aspartate Aminotransferase 25 IU/L (14-36); BUN Creatinine Ratio 22.2 (6-22); Bilirubin Total 0.6 mg/dL (0.2-1.3); Blood Urea Nitrogen 14 mg/dL (7-17); Calcium 9.4 mg/dL (8.4-10.2); Carbon Dioxide 27 mmol/L (22-32); Chloride 104 mmol/L (98-107); Estimated Glomerular Filt Rate > 60.0 mL/min (>60); Globulin 3.2 g/dL (1.7-4.1); Glucose 118 mg/dL (70-100); HEMOLYSIS 18 (0-50); Potassium 4.2 mmol/L (3.4-5.1); Sodium 137 mmol/L (137-145); Total Protein 7.4 g/dL (6.3-8.2)
[2020-02-09 11:34] LABS: Cancer Antigen 125 6.4 U/mL (0-35)
[2020-02-10 07:41] LABS: Cancer Antigen 27.29 22.2 U/mL (0.0-38.6)
== END ==
PROVIDERS: PCP Family Medicine; Referring Provider Internal Medicine Hematology & Oncology; Visit Provider Family Medicine
DX: J32.9 Chronic sinusitis, unspecified (principal); J30.9 Allergic rhinitis, unspecified; G43.909 Migraine, unspecified, not intractable, without status migrainosus; J34.3 Hypertrophy of nasal turbinates; J34.2 Deviated nasal septum; C50.912 Malignant neoplasm of unspecified site of left female breast
CPT/HCPCS: 36415; 70486; 80053; 85025; 86300; 86304

== ENCOUNTER → 2020-03-17 08:11 | Outpatient (CLI) | payer OTHER, SELFPAY ==
[2020-03-17] MEDS: COVID-19 VACC(MODERNA-1)/PF 100 MCG/0.5 ML VIAL IM (08:18)
== END ==
PROVIDERS: PCP Family Medicine; Visit Provider Internal Medicine
DX: Z23 Encounter for immunization (principal)
CPT/HCPCS: 0011A; 91301

== ENCOUNTER → 2020-04-12 14:41 | Outpatient (CLI) | payer OTHER, SELFPAY ==
[2020-04-12] MEDS: COVID-19 VACC #2, MRNA(MOD) 100 MCG/0.5 ML VIAL IM (14:47)
== END ==
PROVIDERS: PCP Family Medicine; Visit Provider Internal Medicine
DX: Z23 Encounter for immunization (principal)
CPT/HCPCS: 0012A; 91301

== ENCOUNTER → 2021-01-05 18:44 | Outpatient (CLI) | payer OTHER, SELFPAY | PROVIDERS: PCP Family Medicine; Referring Provider Internal Medicine; Visit Provider Internal Medicine | DX: Z23 Encounter for immunization (principal) | CPT/HCPCS: 90471; 90686 ==

== ENCOUNTER → 2021-01-12 08:55 | Outpatient (CLI) | payer OTHER, SELFPAY ==
[2021-01-12 09:47] LABS: Add Manual Diff / Slide Review NO; Basophils Absolute Auto 0 /uL (0-100); Basophils Percent Auto 0.7 % (0-2); Eosinophils Absolute Auto 200 /uL (0-450); Eosinophils Percent Auto 3.8 % (2-4); Hematocrit 38.3 % (36-46); Hemoglobin 12.8 g/dL (12.0-16.0); Lymphocytes Absolute Auto 2200 /uL (1100-4500); Lymphocytes Percent Auto 37.1 % (25-40); Mean Corpuscular HGB Conc 33.5 % (30-36); Mean Corpuscular Hemoglobin 31.4 PG (26-34); Mean Corpuscular Volume 93.5 fL (80-100); Monocytes Absolute Auto 500 /uL (0-900); Monocytes Percent Auto 8.7 % (3-14); Neutrophils Absolute Auto 3000 /uL (1500-7000); Neutrophils Percent Auto 49.7 % (50-75); Platelet Count 262 X10^3/uL (150-400); Red Blood Cell Count 4.09 X10^6/uL (4.0-5.2); Red Cell Distribution Width 12.7 % (11.6-14.8)
[2021-01-12 10:00] LABS: Hemoglobin A1C% w Est Avg Glu 5.3 % (4.0-6.0)
[2021-01-12 11:00] LABS: Alanine Aminotransferase 18 IU/L (<35); Albumin 4.2 g/dL (3.5-5.0); Albumin Globulin Ratio 1.4 (1.0-2.8); Alkaline Phosphatase 68 U/L (38-126); Aspartate Aminotransferase 25 IU/L (14-36); BUN Creatinine Ratio 18.5 (6-22); Bilirubin Total 0.4 mg/dL (0.2-1.3); Blood Urea Nitrogen 12 mg/dL (7-17); Calcium 9.4 mg/dL (8.4-10.2); Carbon Dioxide 26 mmol/L (22-32); Chloride 104 mmol/L (98-107); Cholesterol 184 mg/dL (140-199); Estimated Glomerular Filt Rate > 60.0 mL/min (>60); Globulin 2.9 g/dL (1.7-4.1); Glucose 97 mg/dL (70-100); HDL Cholesterol 64 mg/dL (40-60); HEMOLYSIS < 15 (0-50); LDL Cholesterol Calculated 93 mg/dL (<100); Potassium 4.4 mmol/L (3.4-5.1); Sodium 138 mmol/L (137-145); Total Protein 7.1 g/dL (6.3-8.2); Triglycerides 133 mg/dL (35-150); VLDL Cholesterol Calculated 27 mg/dL (2-30)
[2021-01-12 11:43] LABS: Thyroid Stimulating Hormone 1.66 uIU/mL (0.47-4.68)
== END ==
PROVIDERS: PCP Family Medicine; Referring Provider Family Medicine; Visit Provider Family Medicine
DX: Z00.00 Encounter for general adult medical examination without abnormal findings (principal); R73.01 Impaired fasting glucose
CPT/HCPCS: 36415; 80053; 80061; 83036; 84443; 85025

== ENCOUNTER → 2021-01-13 12:20 | Outpatient (CLI) | payer OTHER, SELFPAY ==
[2021-01-13] MEDS: COVID-19 VACC #3, MRNA(MOD) 50 MCG/0.25 ML VIAL IM (12:34)
== END ==
PROVIDERS: Visit Provider Internal Medicine
DX: Z23 Encounter for immunization (principal)
CPT/HCPCS: 0013A; 91301; 99281

== ENCOUNTER → 2021-08-16 13:16 | Outpatient (CLI) | payer OTHER, SELFPAY ==
[2021-08-16 13:54] LABS: COVID19 -Nasal RAPID Negative (Negative)
== END ==
PROVIDERS: PCP Family Medicine; Visit Provider Surgery
DX: Z20.822 Contact with and (suspected) exposure to COVID-19 (principal); Z01.812 Encounter for preprocedural laboratory examination
CPT/HCPCS: 87635; C9803

== ENCOUNTER 2021-08-17 12:58 | Day surgery (SDC) | payer OTHER, SELFPAY ==
[2021-08-17] VITALS (7 sets, daily range): BP systolic 102–124; BP diastolic 59–79; PULSE 66–76; RESP 12–18; TEMP 36.5–37.4; O2SAT 94–98; BMI 27.7
--- NOTE | 2021-08-17 | PATH_ITS ---
[facility] Accession Number: [id number] . 01 Material submitted: . PART A: duodenum - DUODENUM PART B: stomach - ANTRUM . 01 Diagnosis: A. Duodenum, Biopsy: Duodenal mucosa with no diagnostic abnormality. Negative for active inflammation, features of sprue, dysplasia, or malignancy. . B. Stomach, Antrum, Biopsy: Antral mucosa with mild chronic gastritis. Negative for Helicobacter by immunohistochemistry. Negative for intestinal metaplasia. Negative for dysplasia and malignancy. MRV 08/22/2021 1211 Local . 01 Electronically signed: . Lor Cook MD, Pathologist NPI- [id number] . 01 Gross description: . Part A: DUODENUM: Received in formalin is 1 fragment(s) of carr, soft tissue measuring 0.2 x 0.2 x 0.2 cm submitted entirely in 1 cassette(s) Part B: ANTRUM: Received in formalin are 4 fragment(s) of carr, soft tissue measuring 0.4 x 0.2 x 0.1 cm to 0.3 x 0.1 x 0.1 cm submitted entirely in 1 cassette(s) /CPE 08/18/2021 0817 Local . 01 Microscopic: . B. An immunohistochemical stain was performed to evaluate for Helicobacter organisms and is negative. The control stain showed appropriate reactivity. . * This test was developed and its performance characteristics determined by [employer]. It has not been cleared or approved by the U.S. Food and Drug Administration. The FDA has determined that such clearance or approval is not necessary. This test is used for clinical purposes. It should not be regarded as investigational or for research. . 01 Pathologist provided ICD-10: R10.9 . 01 CPT . 352294, 721482, F09034 Specimen Comment: A courtesy copy of this report has been sent to [phone] Performed at: 01 [facility] [address] [facility], [place], [place] [id number] MD Kike Martinez MD Phone: [phone]
[2021-08-17] MEDS: LACTATED RINGERS 1,000 ML 84 ML IV (13:57)
--- NOTE | 2021-08-17 14:24 | PM.HP.1 ---
History of Present Illness History of Present Illness Date Patient Seen: 08/17/21 Time Patient Seen: 14:25 Chief complaint: SDC Narrative: Tabitha is a 51-year-old woman who is here for an EGD due to several months of persistent upper abdominal burning abdominal pain. The pain does not seem to be associated with eating. Denies rectal bleeding, melena or hematemesis. She had a colonoscopy last year. She had treatment for breast cancer several years ago approximately 2017. Patient History Surgical History (System 01/12/21 @ 16:08 by Alexsandra Kaur) History of third molar tooth extraction Status post appendectomy Status post breast biopsy Status post laparoscopic supracervical hysterectomy (05/17/14) Family & Social History Social History: household members spouse Tobacco & Substance use: Smoking Status Never smoker alcohol intake former Substance Use Type does not use Meds Home Medications and Allergies Home Medications Medication Instructions Recorded Confirmed Type sertraline 25 mg tablet 50 mg PO QPM ##0 05/18/16 08/17/21 History cholecalciferol (vitamin D3) 50 5,000 unit PO DAILY ##0 07/10/16 04/22/18 History mcg (2,000 unit) capsule (Vitamin D3) valacyclovir 1 gram tablet 1,000 mg PO BID PRN Cold Sores 04/22/18 08/17/21 History Lactobacillus acidophilus 10 1 cell DAILY 01/13/19 08/17/21 History billion cell capsule (Probiotic) Blueberry Extract Suppliment 1 cap DAILY 03/07/20 08/17/21 History cetirizine 10 mg capsule (Zyrtec) 10 mg PO DAILY 03/07/20 08/17/21 History tamoxifen 20 mg tablet 20 mg PO DAILY #90 tabs 06/05/21 08/17/21 Rx hydroxyzine HCl 10 mg tablet 10 tab TID 08/17/21 08/17/21 History sucralfate 1 gram tablet 1 tab TID PRN Gastric Reflux 08/17/21 08/17/21 History Allergies Allergy/AdvReac Type Severity Reaction Status Date / Time Sulfa (Sulfonamide Allergy Intermediate RASH ON Verified 01/12/21 16:08 Antibiotics) LEGS [SULFA (SULFONAMIDE ANTIBIOTICS)] amoxicillin [From Augmentin] AdvReac Unknown Diarrhea Verified 08/17/21 13:37 clavulanic acid AdvReac Unknown Diarrhea Verified 08/17/21 13:37 [From Augmentin] Exam Vital Signs (past 8 hours): - 08/17/21 13:34 Temperature 98.6 F Pulse Rate 71 Respiratory Rate 16 Blood Pressure 124/79 Pulse Oximetry 98 Oxygen Delivery Method Room Air Oxygen Delivery Method Room Air Const General: healthy appearing Resp Effort & Inspection: normal respiratory effort GI Other: Abdomen soft, nontender, no Day sign Assessment & Plan Assessment and plan (1) Dyspepsia: Status: Acute Plan 51-year-old woman with dyspepsia here for an EGD. We reviewed the risks and benefits of esophagogastroduodenoscopy and she would like to proceed. COVID-19 COVID-19 status: Negative Result date/Date tested (Pos, Neg/Pending): 08/16/21 Time Spent With Patient Critical Care time: I spent a total of [] minutes of critical care time on this patient's care today; this time is exclusive of procedural time.
[2021-08-17] MEDS: fentaNYL 250 MCG/5 ML INJ 100 MCG IV (14:37)
[2021-08-17] MEDS: MIDAZOLAM 5 MG/5 ML VIAL 6 MG IV (14:44)
--- NOTE | 2021-08-17 14:49 | PM.OP.EGD ---
Operative Date/Time/Diagnoses Date of procedure: 08/17/21 Time of procedure: 14:49 Pre-op diagnosis: Dyspepsia Post-op diagnosis: same Procedure & Clinicians Study performed: Esophagogastroduodenoscopy Same procedure as scheduled: Yes Surgeon: Mason Ramirez Procedure Notes Procedure in detail: Surgeon: Mason Ramirez MD A timeout was performed. Topical lidocaine was administered to the posterior oropharynx. A bite blocked was placed. The patient was positioned in the left lateral decubitus position. Sedation was administered with Versed and fentanyl. The endoscope was inserted through the bite block and passed through the esophagus and stomach and into the duodenum. The duodenal mucosa appeared normal. Random biopsies were taken from the 2nd portion of the duodenum. The scope was withdrawn into the duodenal bulb and no abnormalities were noted. The scope was withdrawn into the stomach. The antrum appeared normal however random biopsies were taken. The rest of the stomach was normal. The scope was retroflexed and a very small hiatal hernia was noted. The scope was withdrawn into the esophagus and no abnormalities were seen. The remainder of the esophagus was normal. The scope was withdrawn. The patient was awakened and brought to recovery. Versed: 6 Fentanyl: 100 Findings: Normal appearance of the upper GI tract Sedation minutes: 13 Post-procedure Recommendations: Will call with biopsy results Disposition: PACU
== END 2021-08-17 15:35 | disposition home or self-care (01) ==
PROVIDERS: PCP Family Medicine; Referring Provider Surgery; Visit Provider Surgery
PROC: 0DJ08ZZ Inspection of Upper Intestinal Tract, Via Natural or Artificial Opening Endoscopic (ICD-10-PCS; CPT 43235; principal; 2021-08-17 14:15)
DX: K29.50 Unspecified chronic gastritis without bleeding (principal); K44.9 Diaphragmatic hernia without obstruction or gangrene
CPT/HCPCS: 43239; 99152; J2250; J3010

== ENCOUNTER 2021-11-28 03:43 | Emergency (ER) | payer OTHER, SELFPAY ==
[2021-11-28 03:50] VITALS: BP 148/79; PULSE 76; RESP 18; TEMP 36.1; O2SAT 97; BMI 28.8
[2021-11-28 04:14] LABS: Add Manual Diff / Slide Review NO; Basophils Absolute Auto 100 /uL (0-100); Basophils Percent Auto 0.7 % (0-2); Eosinophils Absolute Auto 300 /uL (0-450); Eosinophils Percent Auto 3.7 % (2-4); Hematocrit 37.3 % (36-46); Hemoglobin 12.6 g/dL (12.0-16.0); Lymphocytes Absolute Auto 3500 /uL (1100-4500); Lymphocytes Percent Auto 46.6 % (25-40); Mean Corpuscular HGB Conc 33.8 % (30-36); Mean Corpuscular Hemoglobin 31.4 PG (26-34); Mean Corpuscular Volume 92.9 fL (80-100); Monocytes Absolute Auto 800 /uL (0-900); Monocytes Percent Auto 10.5 % (3-14); Neutrophils Absolute Auto 2900 /uL (1500-7000); Neutrophils Percent Auto 38.5 % (50-75); Platelet Count 257 X10^3/uL (150-400); Red Blood Cell Count 4.01 X10^6/uL (4.0-5.2); Red Cell Distribution Width 13.5 % (11.6-14.8); White Blood Cell Count 7.5 X10^3/uL (4.5-11.0)
--- NOTE | 2021-11-28 04:15 | ED_ITS ---
HPI - Abdominal Pain General Chief Complaint: Abdominal Pain Stated Complaint: gall bladder attack Time Seen by Provider: 11/28/21 03:52 Source: patient Mode of arrival: Ambulatory History of Present Illness HPI narrative: Patient presents with right upper quadrant pain that started about 7 hours ago. Pain started after eating a burrito. She has a history of GERD, she is no longer on PPIs. Pain does not feel like her stomach, more focused in the right upper quadrant. She has experienced pain like this previously, more severe tonight. She has no fever chills. She has no nausea vomiting. She has no radiation of pain, she has no back pain. She has no urinary complaints. Related Data Home Medications Medication Instructions Recorded Confirmed sertraline 25 mg tablet 50 mg PO QPM ##0 05/18/16 08/17/21 cholecalciferol (vitamin D3) 50 5,000 unit PO DAILY ##0 07/10/16 04/22/18 mcg (2,000 unit) capsule (Vitamin D3) valacyclovir 1 gram tablet 1,000 mg PO BID PRN Cold Sores 04/22/18 08/17/21 Lactobacillus acidophilus 10 1 cell DAILY 01/13/19 08/17/21 billion cell capsule (Probiotic) Blueberry Extract Suppliment 1 cap DAILY 03/07/20 08/17/21 cetirizine 10 mg capsule (Zyrtec) 10 mg PO DAILY 03/07/20 08/17/21 hydroxyzine HCl 10 mg tablet 10 tab TID 08/17/21 08/17/21 sucralfate 1 gram tablet 1 tab TID PRN Gastric Reflux 08/17/21 08/17/21 Previous Rx's Medication Instructions Recorded tamoxifen 20 mg tablet 20 mg PO DAILY #90 tabs 06/05/21 Allergies Allergy/AdvReac Type Severity Reaction Status Date / Time Sulfa (Sulfonamide Allergy Intermediate RASH ON Verified 01/12/21 16:08 Antibiotics) LEGS [SULFA (SULFONAMIDE ANTIBIOTICS)] amoxicillin [From Augmentin] AdvReac Unknown Diarrhea Verified 08/17/21 13:37 clavulanic acid AdvReac Unknown Diarrhea Verified 08/17/21 13:37 [From Augmentin] Review of Systems Constitutional Constitutional: Reports as per HPI, Denies body ache(s), Denies chills and Denies fever(s) Eyes Eyes: Denies blurry vision and Reports other (No icterus) ENT Ears, Nose, Mouth, and Throat: Denies change in voice, Denies dizziness and Denies sore throat Cardiovascular Cardiovascular: Denies chest pain, Denies syncope and Denies dyspnea Respiratory Respiratory: Denies cough, Denies dyspnea and Denies wheezing Gastrointestinal Gastrointestinal: Reports as per HPI, Denies abdominal pain, Denies nausea and Denies vomiting Genitourinary Genitourinary: Denies dysuria Musculoskeletal Musculoskeletal: Denies back pain and Denies numbness Integumentary/Breasts Skin/Breast: Denies rash and Denies jaundice Neurologic Neurologic: Denies behavioral changes, Denies dizziness, Denies syncope and Denies numbness Psychiatric Psychiatric: Denies anxiety and Denies behavioral changes Hematologic/Lymphatic On Anticoagulants: No Allergic/Immunologic Allergic/Immunologic: Denies wheezing Patient History Medical History (Updated 11/28/21 @ 06:29 by Nathanael Hobbs MD) Breast cancer, left Dyspepsia Migraine Pelvic congestion syndrome (03/24/14) Surgical History History of third molar tooth extraction Status post appendectomy Status post breast biopsy Status post laparoscopic supracervical hysterectomy (05/17/14) Social History household members: spouse Smoking Status: Never smoker alcohol intake: former Smoking Status: Never smoker alcohol intake frequency: 0-2 drinks per day Substance Use Type: does not use Exam Initial Vital Signs Initial Vital Signs: Vital Signs Temperature 96.9 F L 11/28/21 03:50 Pulse Rate 76 11/28/21 03:50 Respiratory Rate 18 11/28/21 03:50 Blood Pressure 148/79 H 11/28/21 03:50 Pulse Oximetry 97 11/28/21 03:50 Oxygen Delivery Method 11/28/21 03:50 Const General: cooperative, healthy appearing and comfortable [facility] Head: normocephalic and occipital foramen tenderness Mouth: oral mucosae normal Throat: posterior oropharynx normal Eyes Conjunctivae: conjunctivae normal Sclera: sclerae normal Neck Neck: No JVD Resp Auscultation: clear to auscultation bilaterally Cardio Rate: regular rate Rhythm: regular rhythm Heart Sounds: S1 normal, S2 normal and no murmurs GI Other: RUQ tenderness with palpation. No masses. No guarding or rebound. Normal bow el sounds. Back/Spine/Pelvis Back: No CVA tenderness Skin General: no rashes or lesions noted, No jaundice and No pallor Neuro General: patient alert, patient awake and no focal motor deficits Extrem General: normal to inspection, no pedal edema and no calf tenderness Psych Appearance: grossly normal Course Course Course Narrative: The patient is feeling better after Toradol and Zofran. LFTs no BC are normal. The apprentice/lineman concluded that her source of pain was likely her liver. Orders Ordered: ED Orders 11/28/21 04:05 Complete Blood Count AUTO DIFF Stat Comprehensive Metabolic Panel Stat Lipase Stat 11/28/21 05:19 Urine Microscopic Stat 11/28/21 05:31 US abdomen limited Stat Discontinued Medications Sodium Chloride (Normal Saline 0.9%) 1,000 mls @ 150 mls/hr IV CONT MILAGRO Last Infusion: 11/28/21 06:30 Dose: 0 mls/hr Documented By: Admin: 11/28/21 04:23 Dose: 150 mls/hr Documented By: NEEL Ketorolac Tromethamine (Ketorolac 30 Mg/Ml Vial) 30 mg IV NOW ONE Stop: 11/28/21 04:15 Last Admin: 11/28/21 04:24 Dose: 30 mg Documented By: NEEL Ondansetron HCl (Ondansetron 4 Mg/2 Ml Inj) 4 mg IV NOW ONE Stop: 11/28/21 04:15 Last Admin: 11/28/21 04:24 Dose: 4 mg Documented By: NEEL Vital Signs Vital signs: Vital Signs - 8 hr 11/28/21 03:50 Temperature 96.9 F L Pulse Rate 76 Respiratory Rate 18 Blood Pressure 148/79 H Pulse Oximetry 97 Oxygen Delivery Method Room Air MDM - Abdominal Pain Lab Data Result diagrams: 11/28/21 04:05 11/28/21 04:05 Labs: Lab Results 11/28/21 11/28/21 11/28/21 Range/Units 04:05 04:05 05:19 WBC 7.5 (4.5-11.0) X10^3/uL RBC 4.01 (4.0-5.2) X10^6/uL Hgb 12.6 (12.0-16.0) g/dL Hct 37.3 (36-46) % MCV 92.9 (80-100) fL MCH 31.4 (26-34) PG MCHC 33.8 (30-36) % RDW 13.5 (11.6-14.8) % Plt Count 257 (150-400) X10^3/uL Neut % (Auto) 38.5 L (50-75) % Lymph % (Auto) 46.6 H (25-40) % Esmeralda % (Auto) 10.5 (3-14) % Eos % (Auto) 3.7 (2-4) % Baso % (Auto) 0.7 (0-2) % Neut # (Auto) 2900 (9672-4694) /uL Lymph # (Auto) 3500 (6446-7668) /uL Esmeralda # (Auto) 800 (0-900) /uL Eos # (Auto) 300 (0-450) /uL Baso # (Auto) 100 (0-100) /uL Sodium 141 (137-145) mmol/L Potassium 3.7 (3.4-5.1) mmol/L Chloride 107 (98-107) mmol/L Carbon Dioxide 24 (22-32) mmol/L BUN 17 (7-17) mg/dL Creatinine 0.75 (0.52-1.04) mg/dL Estimated GFR > 60 (>60) mL/min BUN/Creatinine Ratio 22.7 H (6-22) Glucose 119 H (70-100) mg/dL Calcium 9.1 (8.4-10.2) mg/dL Total Bilirubin 0.4 (0.2-1.3) mg/dL AST 21 (14-36) IU/L ALT 17 (<35) IU/L Alkaline Phosphatase 87 (38-126) U/L Total Protein 7.0 (6.3-8.2) g/dL Albumin 3.9 (3.5-5.0) g/dL Globulin 3.1 (1.7-4.1) g/dL Albumin/Globulin Ratio 1.3 (1.0-2.8) Lipase 72 (23-300) U/L Urine RBC None seen (0-5/HPF) Urine WBC 1-5/hpf (0-5/HPF) Ur Squamous Epith Cells 10-30 /hpf H (0-5/HPF) Urine Bacteria Many (>30) H (None) Ur Culture Indicated? Cult not indicated Point of care testing: Urine Dip Bedside Urine Glucose Negative Bedside Urine Bilirubin - Negative Bedside Urine Ketone - Negative Urine Specific [place] 1.030 Bedside Urine Occult Blood - Negative Bedside Urine pH 5.0 Bedside Urine Protein - Negative Bedside Urine Urobilinogen - Negative Bedside Urine Nitrite - Negative Bedside Urine Leukocytes +/- 15 Esterase Imaging Data US - abdomen: My Impression: Small mobile stone. No cholecystitis. Fatty liver. Discharge Plan Departure Patient Disposition: Home Clinical Impression: Right upper quadrant abdominal pain, Hepatic steatosis Instructions: Nonalcoholic Fatty Liver Disease Activity Restrictions/Additional Instructions: I would suggest small meals, a low-fat diet. Advil for pain. Fatty liver may be the source of your pain. To further explore potential gallbladder disease, HIDA scan would be necessary. This would have to be scheduled, contact your PCM. Return to the ER as needed. Prescriptions: No Action sertraline 25 MG tablet 50 mg PO QPM Qty: 0 cholecalciferol (vitamin D3) [Vitamin D3] 2,000 UNIT capsule 5,000 unit PO DAILY Qty: 0 valacyclovir 1 gram Tablet 1,000 mg PO BID PRN (Reason: Cold Sores) Probiotic 10 billion cell Capsule 1 cell DAILY Rx Instructions: pt to verify dose Zyrtec 10 mg Capsule 10 mg PO DAILY Blueberry Extract Suppliment 1 cap DAILY tamoxifen 20 mg Tablet 20 mg PO DAILY Qty: 90 3RF Rx Instructions: take by mouth daily. sucralfate 1 gram tablet 1 tab TID PRN (Reason: Gastric Reflux) hydroxyzine HCl 10 mg tablet 10 tab TID Rx Instructions: tid prn Referrals: Hayley Gillis MD [Primary Care Provider] - Visit Report Forms: Patient Portal/API
[2021-11-28 04:23] LABS: Alanine Aminotransferase 17 IU/L (<35); Albumin 3.9 g/dL (3.5-5.0); Albumin Globulin Ratio 1.3 (1.0-2.8); Alkaline Phosphatase 87 U/L (38-126); Aspartate Aminotransferase 21 IU/L (14-36); BUN Creatinine Ratio 22.7 (6-22); Bilirubin Total 0.4 mg/dL (0.2-1.3); Blood Urea Nitrogen 17 mg/dL (7-17); Calcium 9.1 mg/dL (8.4-10.2); Carbon Dioxide 24 mmol/L (22-32); Chloride 107 mmol/L (98-107); Estimated Glomerular Filt Rate > 60 mL/min (>60); Globulin 3.1 g/dL (1.7-4.1); Glucose 119 mg/dL (70-100); HEMOLYSIS < 15 (0-50); Lipase 72 U/L (23-300); Potassium 3.7 mmol/L (3.4-5.1); Sodium 141 mmol/L (137-145)
[2021-11-28] MEDS: SODIUM CHLORIDE 0.9% 1,000 ML 150 ML IV (04:23)
[2021-11-28] MEDS: KETOROLAC 30 MG/ML VIAL IV (04:24)
[2021-11-28] MEDS: ONDANSETRON 4 MG/2 ML INJ IV (04:24)
--- NOTE | 2021-11-28 05:31 | DI.US.S_ITS ---
PROCEDURE: US ABDOMEN LIMITED INDICATIONS: RUQ pain TECHNIQUE: Real-time focused scanning was performed of the abdomen, with image documentation. COMPARISON: [facility], US, US ABDOMEN COMPLETE, 11/21/2018, 10:06. FINDINGS: Liver measures about 18 cm with severely increased echogenicity. Cholelithiasis is present. Wall thickness is about 2.2 mm. The gallbladder is distended. No sonographic Day sign. CBD measures 4.6 mm. Pancreas is not well seen. IMPRESSION: Cholelithiasis. No sonographic Day's sign to suggest active cholecystitis. Suspected severe hepatic steatosis. Agree with preliminary report. Dictated by: Dario Drake M.D. on 11/28/2021 at 7:56 Approved by: Dario Drake M.D. on 11/28/2021 at 7:58
[2021-11-28 05:38] LABS: RBC Urine None Seen (0-5/HPF); Squamous Epithelial Cell Urine 10-30 /HPF (0-5/HPF); WBC Urine 1-5/HPF (0-5/HPF)
[2021-11-28 05:39] LABS: Bacteria Urine Many (>30); Culture Indicated Urine Cult Not Indicated
== END 2021-11-28 06:35 | disposition home or self-care (01) ==
PROVIDERS: Emergency Provider Emergency Medicine; PCP Family Medicine
DX: R10.11 Right upper quadrant pain (principal); K76.0 Fatty (change of) liver, not elsewhere classified
CPT/HCPCS: 36415; 76705; 80053; 81003; 81015; 83690; 85025; 96361; 96374; 96375; 99284; J1885; J2405

== ENCOUNTER → 2021-12-14 12:27 | Outpatient (CLI) | payer OTHER, SELFPAY ==
[2021-12-14 13:40] LABS: Hemoglobin A1C% w Est Avg Glu 5.5 % (4.0-6.0)
[2021-12-14 13:41] LABS: C-Reactive Protein Quant 0.7 mg/dL (<1.0)
[2021-12-15 03:33] LABS: HBsAg Screen Negative (Negative); Hepatitis A Antibody IgM Negative (Negative); Hepatitis B Core Antibody IgM Negative (Negative); Hepatitis C Antibody <0.1 s/co ratio (0.0-0.9)
[2021-12-16 12:43] LABS: ANA Screen, IFA Negative (.)
== END ==
PROVIDERS: PCP Family Medicine; Referring Provider Family Medicine; Visit Provider Family Medicine
DX: R10.9 Unspecified abdominal pain (principal)
CPT/HCPCS: 36415; 80074; 83036; 86038; 86140

== ENCOUNTER → 2021-12-22 09:49 | Outpatient (CLI) | payer OTHER, SELFPAY ==
--- NOTE | 2021-12-22 | DI.NM.S_ITS ---
PROCEDURE: NM HIDA WITH CCK PHARMACEUTICAL: 5.2 mCi Tc-99m mebrofenin IV; 1.7 mcg CCK IV. INDICATIONS: Unspecified abdominal pain TECHNIQUE: Following intravenous administration of Tc-99m mebrofenin, sequential anterior abdominal images were obtained. To evaluate the contractile response of the gallbladder in response to Cholecystokinin (CCK), sincalide (0.02 ?g/kg) was administered by slow intravenous infusion approximately 60 minutes after the administration of the radiopharmaceutical. Sequential imaging was continued for 30 minutes after the start of CCK infusion. Gallbladder ejection fraction was calculated. COMPARISON: None. FINDINGS: Biliary scan: There is normal tracer uptake and excretion by the liver. There is normal visualization of the intrahepatic ducts, common bile duct, and gallbladder. There is normal tracer transit into the duodenum. CCK stimulation: There is appropriate contractile response of the gallbladder to CCK infusion. The calculated gallbladder ejection fraction is 54% ; normal values are above 35%. It has been shown that any patient abdominal pain after CCK administration is related to the rate of CCK injection, rather than to any underlying gallbladder disease (Clinical Nuclear Medicine 2012; 37: 63-70. Journal of Nuclear Medicine 2014; 55: 1-9). IMPRESSION: No evidence of cholecystitis. Dictated by: Janeen Mckinney M.D. on 12/22/2021 at 13:24 Transcribed by: ARNULFO on 12/22/2021 at 13:24 Approved by: Janeen Mckinney M.D. on 12/22/2021 at 15:44
== END ==
PROVIDERS: PCP Family Medicine; Referring Provider Family Medicine; Visit Provider Family Medicine
DX: R10.9 Unspecified abdominal pain (principal)
CPT/HCPCS: 78227; A9537; J2805

== ENCOUNTER → 2022-01-16 10:52 | Outpatient (CLI) | payer OTHER, SELFPAY ==
--- NOTE | 2022-01-16 | DI.MRI.S_ITS ---
PROCEDURE: MR ABDOMEN WO/W CON INDICATIONS: Unspecified abdominal pain TECHNIQUE: Coronal HASTE, axial 2D FLASH in- and [id number]; axial breath-hold T2 FSE. Dynamic axial VIBE during the administration of contrast; post-contrast coronal VIBE or 2D FLASH with fat saturation from the hepatic dome to the iliac crests. Optional diffusion weighted imaging and ADC may be performed. COMPARISON: [facility], , ABDOMEN LIMITED, 11/28/2021, 5:42. FINDINGS: Image quality: Excellent. Lung bases: No basal pleural effusions. Bilateral breast implants partially imaged. Solid organs: There is diffuse signal loss on [id number] images compatible with hepatic steatosis. 9 millimeter T2 hyperintense focus at the dome of the liver or subpleural right lower lobe (4/8, 19/51). Probable small hemangioma or transient hepatic intensity difference posterior aspect hepatic segment 7. Cholelithiasis redemonstrated. Biliary system is non dilated. Pancreas is normal in morphology. Spleen is normal in size and enhancement. No adrenal nodules. Both kidneys demonstrate normal size and enhancement, without hydronephrosis. Nodes and vessels: No retroperitoneal or mesenteric adenopathy by size criteria. Aorta and inferior vena cava are normal in size. Bowel and peritoneum: Unenhanced bowel loops are normal in caliber. No free fluid. Bones and soft tissues: Bone marrow is unremarkable in overall signal. IMPRESSION: 1. Hepatic steatosis. 2. Cholelithiasis redemonstrated. 3. At the upper dome of the liver versus subpleural right lower lobe along the right hemidiaphragm, there is a possible subcentimeter hepatic cyst or pulmonary nodule. This area is not well evaluated by MRI due to respiratory motion artifact and susceptibility artifact between lung and soft tissue. Could consider CT of the chest to assess for a pulmonary nodule in this region. If this finding represents a tiny hepatic cyst it is of doubtful clinical significance. Dictated by: Kole Carmona M.D. on 01/17/2022 at 13:50 Approved by: Kole Carmona M.D. on 01/17/2022 at 14:34
== END ==
PROVIDERS: PCP Family Medicine; Referring Provider Family Medicine; Visit Provider Family Medicine
DX: K76.0 Fatty (change of) liver, not elsewhere classified (principal); K80.20 Calculus of gallbladder without cholecystitis without obstruction; R10.9 Unspecified abdominal pain
CPT/HCPCS: 74183; A9579

== ENCOUNTER → 2022-01-25 12:45 | Outpatient (CLI) | payer OTHER, SELFPAY | PROVIDERS: PCP Family Medicine; Referring Provider Internal Medicine; Visit Provider Internal Medicine | DX: Z23 Encounter for immunization (principal) | CPT/HCPCS: 90471; 90686 ==

== ENCOUNTER → 2022-02-16 08:55 | Outpatient (CLI) | payer OTHER, SELFPAY ==
--- NOTE | 2022-02-16 | DI.CT.S_ITS ---
PROCEDURE: CT CHEST W CON INDICATIONS: Solitary pulmonary nodule TECHNIQUE: After the administration of intravenous contrast, 5 mm thick sections acquired from the pulmonary apices to the posterior costophrenic angles. 1 mm axial lung, 5 mm thick coronal and sagittal reformats and 7 mm axial MIP were acquired. For radiation dose reduction, the following was used: automated exposure control, adjustment of mA and/or kV according to patient size. COMPARISON: [facility], , MR ABDOMEN WO/W CON, 01/16/2022, 11:07. FINDINGS: Image quality: Excellent. Lungs and pleura: The study was performed secondary to a pulmonary nodule noted in the extreme right lung base seen on recent MRI of the abdomen. This nodule is a pleural-based right lower lobe pulmonary nodule measuring 9 mm. No other pulmonary nodules are identified. No acute air space opacities. No pleural effusions or pneumothorax. Central and peripheral airways are patent and normal in caliber. Mediastinum: Heart size is normal. No pericardial effusion. No mediastinal or hilar adenopathy by size criteria. Thoracic aorta and central pulmonary arteries are normal in size. Esophagus is normal in caliber. No hiatal hernia. Bones and chest wall: No suspicious bony lesions. No vertebral body compression fractures. No axillary or supraclavicular adenopathy by size criteria. Left axillary clips. Right axillary versus lateral breast clips. Thyroid gland is unremarkable as imaged. . Bilateral mammoplasties. Abdomen: Mild diffuse hepatic steatosis. Visualized upper abdominal solid organs otherwise appear normal. Upper abdominal bowel loops are normal in caliber. IMPRESSION: 1. Solitary 9 mm pulmonary nodule, pleural based, extreme right lung base. Comment: Recommend follow-up CT in 3 months to document stability. Dictated by: Lui Beebe M.D. on 02/16/2022 at 13:23 Approved by: Lui Beebe M.D. on 02/16/2022 at 14:00
== END ==
PROVIDERS: PCP Family Medicine; Referring Provider Family Medicine; Visit Provider Family Medicine
DX: R91.1 Solitary pulmonary nodule (principal)
CPT/HCPCS: 71260; Q9967

== ENCOUNTER → 2022-02-20 13:29 | Outpatient (CLI) | payer OTHER, SELFPAY ==
--- NOTE | 2022-02-22 13:53 | DIET.OUTPTC ---
Addendum entered by Henyn Uriarte 02/22/22 14:14: error, consult on 02.20.22 Addendum entered by Henny Uriarte 02/22/22 14:13: Consult conducted on 02/21/22 Original Note: Dietary Outpatient Consultation Note Consultation Date: 02/22/[address] 51[address] visit for help with diet to support hepatic steatosis and menopause related metabolic weight gain. Pt has completed 5y Tamoxifen therapy for breast cancer. This medication put her into early menopause causing 12# weight gain despite eating regular diet. Since diagnosis of hepatic steatosis, pt has been careful with intake fructose and saturated fat. Pt had been drinking large 16-20oz smoothie every morning with higher frucose containing fruits (banana, apple, bahena) but recently stopped. Pt desires help with meal and snack ideas as she does not often eat wide variety of foods and often repeats things. Pts is vegetarian so they often eat this way with the inclusion of cheese and eggs. 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 On work days, pt does not eat enough during the day then eats large dinner at 8-8:30pm which aggravates her GERD. Recent EGD shows normal esophagus and stomach. Pt states weight gain also uncomfortable. Nutrition Dx: hepatic steatosis r/t medication side effect and undesirable food choices aeb pt on 5y tamoxifen, US imaging shows diffuse hepatic steatosis, pt drinking excessive fructose smoothie, weight gain of 12# in 5y. Interventions: 1. Discussed avoidance of HFCS in processed foods, agave nectar, and free fructose and limiting intake banana, apple and cherries with free intake berries, pears, and other lower fructose fruits for 6mo with repeat US to assess effectiveness of intervention. Pt can then liberalize diet and get repeat scan to see if still at risk for hepatic steatosis once off tamoxifen. 2. Collaborated c pt on ideas for breakfast to replace smoothie including alternate smoothie recipe, yoruba muffin or ww waffle with pb and oatmeal c pb powder and berries. Discussed importance of dietary fiber for weight management. 3. Pt will start attending group class yoga twice weekly to support lean body mass r/t metabolism of menopause. f/u prn Electronically Signed by: Henny Uriarte 02/22/22 13:[address] [id number]
== END ==
PROVIDERS: PCP Family Medicine; Referring Provider Family Medicine; Visit Provider Family Medicine
DX: K76.0 Fatty (change of) liver, not elsewhere classified (principal); R63.5 Abnormal weight gain; N95.1 Menopausal and female climacteric states
CPT/HCPCS: 97802

== ENCOUNTER → 2022-05-14 08:18 | Outpatient (CLI) | payer OTHER, SELFPAY ==
[2022-05-14 09:56] LABS: Hemoglobin A1C% w Est Avg Glu 5.8 % (4.0-6.0)
[2022-05-14 10:21] LABS: Alanine Aminotransferase 24 IU/L (<35); Albumin 4.2 g/dL (3.5-5.0); Albumin Globulin Ratio 1.4 (1.0-2.8); Alkaline Phosphatase 96 U/L (38-126); Aspartate Aminotransferase 22 IU/L (14-36); BUN Creatinine Ratio 20.3 (6-22); Bilirubin Total 0.6 mg/dL (0.2-1.3); Blood Urea Nitrogen 12 mg/dL (7-17); Calcium 9.2 mg/dL (8.4-10.2); Carbon Dioxide 25 mmol/L (22-32); Chloride 101 mmol/L (98-107); Cholesterol 185 mg/dL (140-199); Estimated Glomerular Filt Rate > 60 mL/min (>60); Glucose 117 mg/dL (70-100); HDL Cholesterol 67 mg/dL (40-60); HEMOLYSIS < 15 (0-50); LDL Cholesterol Calculated 90 mg/dL (<100); Potassium 4.2 mmol/L (3.4-5.1); Sodium 134 mmol/L (137-145); Total Protein 7.2 g/dL (6.3-8.2); Triglycerides 141 mg/dL (35-150)
== END ==
PROVIDERS: PCP Family Medicine; Referring Provider Family Medicine; Visit Provider Family Medicine
DX: R73.01 Impaired fasting glucose (principal)
CPT/HCPCS: 36415; 80053; 80061; 83036

== ENCOUNTER → 2023-04-10 06:43 | Outpatient (CLI) | payer BC, SELFPAY ==
--- NOTE | 2023-04-10 06:45 | DI.US.S_ITS ---
PROCEDURE: US ABDOMEN LIMITED INDICATIONS: Fatty (change of) liver; Solitary pulmonary nodule TECHNIQUE: Real-time focused scanning was performed of the abdomen, with image documentation. COMPARISON: [facility], CT, CT CHEST WO CON, 04/10/2023, 6:53. [facility], US, US ABDOMEN LIMITED, 11/28/2021, 5:42. FINDINGS: Increased hepatic echogenicity. Liver measures 14 cm, which is slightly decreased compared to prior. Main portal vein appears patent. Cholelithiasis. No focal tenderness. CBD measures 5 mm. Pancreas is unremarkable. No pathologic free fluid. Right kidney measures 12 cm. The IVC appears patent. IMPRESSION: Increased hepatic echogenicity is nonspecific and is most commonly due to steatosis. Overall liver size is slightly decreased compared to prior Cholelithiasis. No sonographic Day sign. Dictated by: Dario Drake M.D. on 04/10/2023 at 12:44 Approved by: Dario Drake M.D. on 04/10/2023 at 12:45
--- NOTE | 2023-04-10 07:18 | DI.CT.S_ITS ---
PROCEDURE: CT CHEST WO CON INDICATIONS: Fatty (change of) liver; Solitary pulmonary nodule TECHNIQUE: Noncontrast 5 mm thick sections acquired from the pulmonary apices to the posterior costophrenic angles. 1 mm lung window, 5 mm thick coronal and sagittal and 7 mm axial MIP reformats were then acquired. For radiation dose reduction, the following was used: automated exposure control, adjustment of mA and/or kV according to patient size. COMPARISON: [facility], CT, CT CHEST W CON, 02/16/2022, 9:04. FINDINGS: Image quality: Diagnostic Lungs and pleura: Pleural based, possibly fat containing nodule at the right costophrenic angle diaphragmatic surface measuring 8-9 mm. (3/235). No dense airspace disease. No pleural effusions. Mediastinum, heart, and esophagus: No hiatal hernia. No pathologic lymph nodes by size criteria. Normal heart size. Chest wall and thyroid: There are breast implants. Left axillary clips. Upper abdomen: Not well evaluated on this noncontrast study. No gross abnormality. Bones: Degenerative changes, no acute or suspicious finding. IMPRESSION: Unchanged pleural base nodule along the right hemidiaphragm. In the setting of malignancy history, consider further oncologic follow-up imaging at clinical discretion. Dictated by: Dario Drake M.D. on 04/10/2023 at 12:21 Approved by: Dario Drake M.D. on 04/10/2023 at 12:26
== END ==
PROVIDERS: PCP Family Medicine; Referring Provider Family Medicine; Visit Provider Family Medicine
DX: K76.0 Fatty (change of) liver, not elsewhere classified (principal); R91.1 Solitary pulmonary nodule
CPT/HCPCS: 71250; 76705

== ENCOUNTER → 2023-10-11 09:44 | Outpatient (CLI) | payer BC, SELFPAY ==
--- NOTE | 2023-10-11 09:45 | DI.CT.S_ITS ---
PROCEDURE: CT CHEST WO CON INDICATIONS: LUNG NODULE FOLLOW UP TECHNIQUE: Noncontrast 2.0-2.5 mm thick sections acquired from the pulmonary apices to the posterior costophrenic angles. 7 mm thick axial MIP and 5 mm coronal and sagittal reformats were then acquired. For radiation dose reduction, the following was used: automated exposure control, adjustment of mA and/or kV according to patient size. COMPARISON: [facility], CT, CT CHEST WO [facility], 04/10/2023, 6:53. FINDINGS: Image quality: Diagnostic. Lower Neck: No enlarged lymph nodes. Thyroid: No thyroid nodules which require sonographic follow up, per consensus guidelines. Axillae: No enlarged lymph nodes. Chest Wall: Unremarkable. Bones: Unremarkable. Lungs and Pleura: No pneumothorax or pleural effusions. No consolidation or suspicious nodules. A few subcentimeter juxtapleural nodules are again seen,. [employer] nodules in the right base reniform solid appears unchanged in size at 8 millimeters (series 3 image 228), 8 millimeter reniform left posterior pleura nodule versus focal atelectasis (series 3, image 216), new. Heart: Heart size is normal. No pericardial effusion. Thoracic Vessels: The aorta and pulmonary arteries demonstrate normal size. Mediastinum and Meenakshi: No enlarged lymph nodes. Esophagus: No wall thickening. No hiatal hernia. Upper Abdomen: Visualized upper abdomen solid organs and bowel loops appear normal. IMPRESSION: Juxtapleural nodules up to 8 millimeters in size, some of which are new. These are most likely representing benign lymph nodes in a patient with no prior history of neoplasia. Recommend follow-up CT chest Fleischner Society criteria for SOLID lung nodule followup. Nodule size (mm)Low-risk patientHigh-risk patient<6 (single or multiple)No routine followup.Optional CT at 12 months. 6-8 (single or multiple)CT at 6-12 months, then optional CT at 18-24 mo.CT at 6-12 months, then CT at 18-24 months. >8 (single)CT at 3 months, PET-CT, or biopsy. Same as for low-risk pts. >8 (multiple)CT at 3-6 months, then optional CT at 18-24 mo.CT at 3-6 months, then CT at 18-24 months. Fleischner Society criteria for SUB-SOLID lung nodule followup. Solitary pure ground-glass nodules<6 mm (ground glass or part solid)No followup needed. 6 mm or larger (ground glass)CT at 6-12 months to confirm persistence, then CT every 2 years until 5 years.6 mm or larger (part solid)CT at 3-6 months to confirm persistence, then annual CT until 5 years if unchanged and solid component remains <6 mm. Multiple sub-solid nodules<6 mmCT at 3-6 months, then CT consider at 2 & 4 years for high risk patients. [address] at 3-6 months. Subsequent management based on most suspicious lesions. Recommendations do not apply to lung cancer screening, patients with immunosuppression, or patients with known primary cancer. Dictated by: Abiel Hurtado M.D. on 10/11/2023 at 14:56 Approved by: Abiel Hurtado M.D. on 10/11/2023 at 15:06
== END ==
PROVIDERS: PCP Family Medicine; Referring Provider Family Medicine; Visit Provider Family Medicine
DX: R91.8 Other nonspecific abnormal finding of lung field (principal)
CPT/HCPCS: 71250

== ENCOUNTER → 2024-12-17 10:57 | Outpatient (CLI) | payer BC, SELFPAY ==
--- NOTE | 2024-12-17 10:59 | DI.US.S_ITS ---
PROCEDURE: US ABDOMEN LIMITED INDICATIONS: Hepatic steatosis TECHNIQUE: Real-time scanning was performed of the abdominal and retroperitoneal organs, with image documentation. COMPARISON: [facility], , US ABDOMEN LIMITED, 04/10/2023, 7:01. FINDINGS: Liver: Mildly hyperechoic liver parenchyma. No mass or intrahepatic biliary dilation. Right liver measures 15.7 cm. No cirrhosis. Gallbladder: Gallstones are noted. No wall thickening. No pericholecystic edema. Negative sonographic Day's sign. Biliary ducts: Intrahepatic bile ducts are non-dilated. Extrahepatic bile duct caliber measures 3 mm. Normal is 6-7 mm or less in diameter, or 10 mm or less post-cholecystectomy. Pancreas: Limited visualization of the pancreas due to bowel gas artifacts. Given the limitations, pancreas is grossly unremarkable. Miscellaneous: No free abdominal fluid. IMPRESSION: Echogenic probably fatty liver. No hepatomegaly, mass or cirrhosis. Cholelithiasis without sonographic findings concerning for acute cholecystitis. Dictated by: Jennifer Dubon M.D. on 12/18/2024 at 8:41 Approved by: Jennifer Dubon M.D. on 12/18/2024 at 8:43
== END ==
LOC: US 10:58
PROVIDERS: PCP Family Medicine; Referring Provider Family Medicine; Visit Provider Family Medicine
DX: K76.0 Fatty (change of) liver, not elsewhere classified (principal); K80.20 Calculus of gallbladder without cholecystitis without obstruction
CPT/HCPCS: 76705

== ENCOUNTER → 2025-02-22 12:42 | Outpatient (CLI) | payer BC, SELFPAY ==
--- NOTE | 2025-02-22 12:44 | DI.RAD.S_ITS ---
PROCEDURE: XR LUMBAR SPINE 2-3V INDICATIONS: LOW BACK PAIN TECHNIQUE: 3 views of the lumbar spine were acquired. COMPARISON: None. FINDINGS: Bones: 5 [id number] vertebrae are present. There is mild right dextroconvex curvature of the lumbar spine. Moderate multilevel degenerative changes as manifested by disc space narrowing, endplate sclerosis and osteophytosis. Mild inferior lumbar facet arthropathy. No vertebral body compression fractures. No suspicious bony lesions. Soft tissues: Overlying bowel gas pattern is normal. No suspicious soft tissue calcifications. IMPRESSION: No acute bony abnormality. Mild multilevel degenerative changes and inferior facet arthropathy. If symptoms persist with conservative management, consider cross-sectional imaging such as CT or MRI. Approved by: Leela Devine M.D.,Ph.D. on 02/23/2025 at 1:35
== END ==
PROVIDERS: PCP Family Medicine; Referring Provider Family Medicine; Visit Provider Family Medicine
DX: M47.26 Other spondylosis with radiculopathy, lumbar region (principal); M54.50 Low back pain, unspecified
CPT/HCPCS: 72100